=== PATIENT | male | born 1950 | race Caucasian/White ===

== ENCOUNTER → 2020-04-17 11:18 | Outpatient (CLI) | payer MEDICARE, SELFPAY ==
[2020-04-08 12:59] VITALS: BMI 28.3
--- NOTE | 2020-04-17 17:44 | STRESSREP_ITS ---
Stress Test Report Exercise myocardial perfusion stress test. 69-year-old man with a history of hypertension and hyperlipidemia and chest discomfort. Resting KG demonstrates normal sinus rhythm with a rate of 69 bpm normal intervals are noted resting blood pressure is 1 and 30/80 2 mmHg. The patient exercised according to regular Edward protocol for a total duration of 3 minutes and 31 seconds. The maximum heart rate attained was 122 bpm which was 80% of max impacted heart rate. Patient completed 31 seconds into stage II of the Edward protocol. The maximum heart rate attained was 122 bpm the maximum workload was 5.2 metabolic equivalents. At rest there were no ST or T wave changes noted suggest ischemia at peak exercise upsloping ST changes were noted with no meet the criteria for ischemia. The test was terminated due to fatigue. Myocardial perfusion protocol. 11.0 mCi of technetium 99m sestamibi was injected at rest. The patient exercis ed according to regular Edward protocol at peak exercise 34.3 mCi of technetium 99m sestamibi was injected stress images were obtained stress and rest images were reconstructed and compared in the short axis vertical and horizontal long axis. Gated images were also obtained Perfusion SPECT analysis: Review of the stress images demonstrate normal uptake of tracer noted in all areas of the myocardium the resting images similar demonstrate normal uptake of tracer noted in all areas of the myocardium. No reversibility is noted suggest ischemia no previous infarct is noted. Gated SPECT analysis: The gated ejection fraction is noted to be 69%. Conclusion: Normal exercise myocardial perfusion stress test at a low to moderate workload. Preserved ejection fraction.
== END ==
PROVIDERS: PCP Family Medicine; Referring Provider Internal Medicine Cardiovascular Disease; Visit Provider Internal Medicine Cardiovascular Disease
DX: R07.9 Chest pain, unspecified (principal)
CPT/HCPCS: 78452; 93017; A9500; A4216

== ENCOUNTER → 2020-04-22 12:52 | Outpatient (CLI) | payer MEDICARE, SELFPAY ==
[2020-04-08 12:59] VITALS: BMI 28.3
--- NOTE | 2020-04-22 12:53 | ECHOD_ITS ---
Reason For Study: CHEST PAIN Procedure This was a 2D Doppler, Color Flow transthoracic echocardiogram. Exam performed in department. Left Ventricle Normal LV size. Left ventricular systolic function is normal. The estimated ejection fraction is 60 %. Stage 1 diastolic dysfunction. No regional wall motion abnormalities noted. Right Ventricle Normal RV size. Normal systolic function. Atria Normal left atrium. Normal right atrium. Mitral Valve Normal mitral valve. Tricuspid Valve Normal tricuspid valve. Mild tricuspid valve insufficiency. Pulmonary artery systolic pressure is 30 mmHg. Aortic Valve Normal aortic valve. Trisinus/trileaflet aortic valve. Pulmonic Valve Normal pulmonic valve. Great Vessels Normal aortic root. The pulmonary artery is normal size. Normal inferior vena cava. Pericardium/Pleural No pericardial effusion. MMode/2D Measurements & Calculations LVIDd: 4.4 cm IVSd: 0.97 cm Ao root diam: 3.0 cm LVIDs: 2.6 cm LVPWd: 1.0 cm RVDd: 3.4 cm FS: 40.4 % LAV(MOD-bp): 60.8 ml LA A4 area: 17.1 cm2 LA dimension(2D): 3.6 cm LAV(MOD-bp) Indexed: 30.7 ml/m2 LAV(MOD-sp2): 54.0 ml LAV(MOD-sp4): 54.2 ml RA A4 area: 11.7 cm2 Time Measurements MV dec time: 0.21 sec Doppler Measurements & Calculations MV E max kodak: 79.0 cm/sec Lat Peak E' Kodak: 8.3 cm/sec Med Peak E' Kodak: 7.7 cm/sec MV A max [place]ak: 91.6 cm/sec E/E' lat: 9.6 E/E' med: 10.2 MV E/A: 0.86 Ao V2 max: 155.4 cm/sec LV V1 max: 125.0 cm/sec PA V2 max: 131.4 cm/sec Ao max P.7 mmHg LV V1 max P.3 mmHg TR max kodak: 254.6 cm/sec TR max P.9 mmHg Interpretation Summary Normal LV size. Left ventricular systolic function is normal. The estimated ejection fraction is 60 %. Stage 1 diastolic dysfunction. Pulmonary artery systolic pressure is 30 mmHg. Ordering Physician: Joni^Mj^^^ Referring Physician: Niraj Pastrana Performed By: Sharon Manley, FERCHO, RVT
== END ==
PROVIDERS: PCP Family Medicine; Referring Provider Internal Medicine Cardiovascular Disease; Visit Provider Internal Medicine Cardiovascular Disease
DX: I10 Essential (primary) hypertension (principal); R07.9 Chest pain, unspecified
CPT/HCPCS: 93306

== ENCOUNTER 2020-04-27 06:53 | Day surgery (SDC) | payer MEDICARE, SELFPAY ==
[2020-04-08 12:59] VITALS: BMI 28.3
[2020-04-24 09:43] VITALS: BMI 28.3
--- NOTE | 2020-04-24 12:27 | RAD_ITS ---
STUDY: X-RAY CHEST REASON FOR EXAM: Male, 69 years old. Pre heart cath 04-27-20, low heart rate, abnormal stress test, abnormal EKG, chest pain TECHNIQUE: PA and lateral views of the chest. COMPARISON: None. FINDINGS: The lungs are clear and expanded. There is no demonstrated pleural abnormality. Normal size heart. Normal mediastinum and ruthy. Normal visualized pulmonary arteries. There is atherosclerotic tortuosity of the aortic arch and descending thoracic aorta. There are mild degenerative changes of the visualized thoracic spine. Normal visualized ribs, clavicles, and shoulders. There is no demonstrated abnormality of the visualized soft tissue structures of the upper abdomen. RAD/Chest PA and Lateral IMPRESSION: No acute abnormality is seen. Electronically Signed: Juvencio Carr MD at 12:54 EST , Service support ,
[2020-04-24 12:44] LABS: Absolute Neutrophil Count 4.5 X10^3/uL (2.0-7.7); Basophil# 0.01 X10^3/uL; Basophil% 0.1 % (0-1); Eosinophil# 0.26 X10^3/uL; Eosinophils% 3.8 % (0-5); Hematocrit 40.7 % (40-54); Hemoglobin 12.7 g/dL (13.0-16.5); Lymphocyte % 21.9 % (19-41); Mean Corp Hgb Conc 31.2 g/dL (32-36); Mean Corpuscular Hgb 27.2 pg (27.0-32.0); Mean Corpuscular Volume 87.2 fL (80-94); Mean Platelet Vol. 8.8 fl (6.2-12.0); Monocyte# 0.54 X10^3/uL; Monocyte% 7.9 % (0-10); NRBC Flagged by Analyzer 0 % (0-5); Neutrophil # 4.52 X10^3/uL (2.7-7.7); Platelet Count 408 K/mm3 (150-450); RBC Distribution Width CV 12.6 % (11.6-14.6); RBC Distribution Width SD 39.8 fl (35.1-43.9); Red Blood Count 4.67 M/mm3 (4.6-6.2); White Blood Count 6.9 K/mm3 (4.4-11.0)
[2020-04-24 13:17] LABS: Anion Gap 6 (5-15); BUN 20 mg/dL (7-18); BUN/Creat Ratio 25.8 RATIO (10-20); Calcium,Total 8.9 mg/dL (8.5-10.1); Chloride 104 mmol/L (98-107); Creatinine, Serum 0.78 mg/dL (0.70-1.30); EST Glomerular Filtration Rate 106 mL/min (>60); Est Glom Filt Rate - Afr Amer 128 mL/min (>60); Glucose 108 mg/dL (74-106); Potassium 3.9 mmol/L (3.5-5.1); Sodium Level 137 mmol/L (136-145)
--- NOTE | 2020-04-27 06:00 | HP_ITS ---
HPI HPI History of Present Illness Details: Pleasant 69-year-old man with no previous cardiac history other than hypertension hyperlipidemia who presents with chest discomfort. He says that this discomfort is dull it comes on and sometimes lasts a few minutes and then goes away. He is not really sure what brings it on. He however thinks that activity worsens the discomfort. He has had no dizziness or diaphoresis no near syncope or syncope. He has been compliant with his medications. He has noted that his blood pressure has been slightly elevated. He has not had any recent testing. He did receive the quality assurance group leader for an elevated CYNTHIA titer and sed rate. He was on lipid-lowering therapy but is not taking anything at this time and is not taking anything for hypertension as well. Intake Vital Signs 04/08/20 Height 5 ft 8 in 04/08/20 Weight: 186 lb 04/08/20 BMI 28.3 04/08/20 BP 161/77 H 04/08/20 Respiration 16 04/08/20 Pulse 76 04/08/20 Pulse Oximetry (%) 97 Intake Visit Reasons: PCP ref'd for CP, abn EKG Allergies No Known Allergies Allergy (Verified 04/08/20 09:44) Medications baclofen 10 mg tablet 10 mg PO QHS 04/07/20 [History Confirmed 04/08/20] levocetirizine 5 mg tablet 5 mg PO QPM 04/07/20 [History Confirmed 04/08/20] meloxicam 15 mg tablet 15 mg PO DAILY 04/07/20 [History Confirmed 04/08/20] montelukast 10 mg tablet 10 mg PO DAILY 04/07/20 [History Confirmed 04/08/20] hydroxyzine HCl 25 mg tablet 25 mg PO QHS 04/08/20 [History Confirmed 04/08/20] lisinopril 20 mg tablet 20 mg PO DAILY #90 tab 04/08/20 [Rx Confirmed 04/08/20] [facility], [facility] Medical History Essential hypertension (Chronic) Hyperlipidemia (Chronic) Arthralgia (Chronic) Elevated antinuclear antibody (CYNTHIA) level (Chronic) GERD (gastroesophageal reflux disease) (Chronic) History of arthritis (Chronic) Surgical History History of cholecystectomy (Resolved 2014) History of colonoscopy (Resolved 2016) History of tonsillectomy (Resolved) Family History Mother Heart disease Diabetes Father Myocardial infarction Social History (Updated 04/08/20 @ 13:[address] Mj Quinones MD) Smoking Status: Never smoker alcohol intake: current alcohol intake frequency: holidays/special occasions only substance use type: does not use ROS Const Const: Negative for fatigue, weakness, headache(s), frequent falls, difficulty sleeping or excessive sweating Eyes Eyes: Negative for loss of peripheral vision, transient loss of vision, blurry vision, double vision or tunnel vision ENT ENT: Negative for headache(s), dizziness, Nosebleed/epistaxis or balance problems Cardio Chest Pain: Yes (new onset x 1 month) Character: tightness Onset: exercise Location: left chest Palpitations: No Edema: None Muscle aches with walking: None Resp Respiratory: Negative for SOB with activity, SOB at rest, SOB orthopnea\SOB lying down, Cough or paroxysmal nocturnal dyspnea GI GI: Negative nausea, vomiting, heartburn or black,tarry stools : Negative for hematuria Musc Musc: Negative for muscle aches/ myalgia, muscle weakness, joint pain or balance problems Skin Skin: Negative non-healing lesions, rash or unusual bruising Neuro Neuro: Negative for dizziness, lightheadedness, near syncope, syncope, orthostatic symptoms, frequent falls, headache(s), weakness, blurry vision, double vision or lack of coordination Baljit Hematologic/Lymphatic: Negative for easy bleeding or easy bruising Endo Endo: Negative for fatigue, excessive sweating or increased thirst/drinking Psych Psych: Negative for anxiety or depression Allergy Allergy/Immunology: Negative for hives, Negative for rash Cardiology Exam Const Appearance: cooperative, healthy appearing, no acute distress, well developed and well groomed Nutritional Appearance: average body habitus and well nourished Orientation: alert, awake and oriented x3 Head Head: normal to inspection, normocephalic and atraumatic Ears: hearing grossly normal bilaterally and external ears normal Nose: external nose normal, nares normal, nasal mucous membranes and turbinates normal, septum normal, no nasal discharge Face and Sinus: face symmetric Mouth: oral mucosae normal, tongue normal, oropharynx normal and moist mucous membranes Teeth and gingiva: dentition normal Throat: posterior oropharynx normal, tonsils normal and uvula midline Eyes General: appearance normal, both eyes and all related structures Eyelids: eyelids normal Conjunctivae: conjunctivae normal Pupils: PERRL, normal by confrontation and accommodation normal EOM: EOM intact bilaterally Neck Neck: normal visual inspection, trachea midline and no JVD JVD: +5 Carotids: normal carotid upstroke and bounding pulses Chest Chest inspection: normal inspection of the chest, symmetric chest movement and normal respiratory effort Auscultation: Bilateral: Clear to Auscultation Cardio Palpation: normal PMI Rate: regular rate Rhythm: regular rhythm Heart sounds: S1 normal, S2 normal and normal, physiologic split S2; negative rub, gallop or murmur GI GI: normal to inspection, soft, no hepatosplenomegaly and bowel sounds present Neuro General: alert, awake, oriented x3, gait normal, moves all extremities and no focal sensory deficit Skin Skin: no rashes or lesions noted Extremities Pulses: Normal: Right Femoral Pulse, Left Femoral Pulse, Right Dorsalis Pedis Pulse, Left Dorsalis Pedis Pulse, Right Posterior Tibial Pulse, Left Posterior Tibial Pulse, Right Radial Pulse, Left Radial Pulse Lower Extremity Edema: None: Bilateral Musculoskel Musculoskeletal: No joint tenderness Psych Psychological: normal affect Assessment & Plan 1. Chest pain R07.9 Plan He does have chest discomfort which appears to be worse with exercise. His EKG demonstrates normal sinus rhythm with a rate of 66 bpm and occasional premature atrial complex. I would recommend at this time that we perform an echocardiogram as well as an exercise stress test and depending on those findings further recommendations will be made. Orders Orders: Echo Complete Today Nuclear Stress Test - Treadmil Today 2. Essential hypertension I10 Plan His blood pressure is uncontrolled I would recommend that it be better controlled and I would like to start him on an BLAYNE inhibitor. An echocardiogram should also be performed to assess his ventricular function. With regard to his lipids we will continue with the current medical therapy. Orders Orders: Echo Complete Today Plan Detail Other Medications New: lisinopril 20 mg PO DAILY 90 tabs 3RF Follow Up 6 Months ([facility]) Coding Level of Care Code Off vis,new,level 4 Diagnoses Chest pain R07.9 Essential hypertension I10 Coding Level of Care Code Off vis,new,level 4 Diagnoses Chest pain R07.9 Essential hypertension I10
--- NOTE | 2020-04-27 08:48 | CL.D_ITS ---
Patient Name: MARYANN CONNOR Study Date: 04/27/2020 Performing: Mj Quinones MD Ht: 68.11 inches 173 cm : 1950 Wt: 185.19 lbs 84 kg Age: 69 Gender: male BSA: 1.98 PROCEDURE(S) PERFORMED NS10-USN/COR/LV CLINICAL PROFILE AND INDICATIONS Indications: Suspected CAD Heart Failure: None Stress/Imaging Date: 04/17/20ress Test with SPECT MPI: Indeterminant CAD Presentations: Unstable angina. 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 Preserved left ventricular systolic func tion. RECOMMENDATIONS Surgery consult for coronary revascularization DESCRIPTION OF PROCEDURE The patient arrived to the procedure lab. The risks and benefits of the procedure as well as a full d escription of our services here and current unavailability of surgical backup were fully explained to the patient and/or their significant other prior to the catheterization. The Timeout was completed, verifying the correct patient and procedure. The patient's procedural site was prepped and draped in the usual fashion. Local anesthetic was given subcutaneously to right radial region with Lidocaine 2% . Using a modified Seldinger technique, arterial access was obtained via the right radial artery, a 6 Fr sheath was inserted. Left Coronary Artery selective angiography was performed in multiple views u sing a 5 Fr. 4.0 [place] catheter. Right Coronary Artery selective angiography was then performed in mu ltiple views using a 5 Fr. 4.0 [place] catheter. Left Ventriculography was performed in FARIA projection using a 5 Fr. Pigtail catheter.The arterial sheath was pulled and a TR Band was applied for hemostasis CORONARY ANGIOGRAPHY DOMINANCE: Right Dominant LEFT HEART ASSESSMENT Left Ventricular Ejection Fraction: by LV Gram 60 % Normal LV wall motion Normal Left Ventricular systolic function LEFT MAIN: Angiographically normal LEFT ANTERIOR DESCENDING ARTERY: PROX LAD: Mild calcification, Long 70 % Stenosis DIAGONAL 1: Ostial - 80 % Stenosis CIRCUMFLEX ARTERY: PROX CIRC: 80 bifurcating % Stenosis RIGHT CORONARY ARTERY: MID RCA: 80 % Stenosis RT PLV: 80 % Stenosis RT PDA: Ostial - 90 % Stenosis COMPLICATIONS No Complications PROCEDURE MEDICATIONS Fentanyl 50 mcg IV Versed 1 mg IV Versed 1 mg IV Oxygen: 2 L/min via nasal cannula SUMMARY OF HEMODYNAMIC DATA Time AIR REST ECG 07:13:51 AO 113/64 (86) SA 08:28:02 LV 114/-4, 9 08:35:18 LV 110/0, 6 08:35:33 LV 141/5, 16 08:36:02 LV 125/5, 14 08:36:08 LVp 119/1, 13 08:36:14 AOp 130/65 (91) 08:36:19 08:47:38 Signed By Mj Quinones MD On 04/27/2020 08:48:16 Mj Quinones MD
== END 2020-04-27 10:40 | disposition home or self-care (01) ==
LOC: CLSP 06:53
PROVIDERS: PCP Family Medicine; Referring Provider Internal Medicine Cardiovascular Disease; Visit Provider Internal Medicine Cardiovascular Disease
DX: R07.9 Chest pain, unspecified (principal); I10 Essential (primary) hypertension; I25.110 Atherosclerotic heart disease of native coronary artery with unstable angina pectoris; I49.1 Atrial premature depolarization; E78.5 Hyperlipidemia, unspecified; K21.9 Gastro-esophageal reflux disease without esophagitis; M25.50 Pain in unspecified joint; Z79.82 Long term (current) use of aspirin; Z79.1 Long term (current) use of non-steroidal anti-inflammatories (NSAID); Z79.899 Other long term (current) drug therapy
CPT/HCPCS: 36415; 71046; 80048; 85025; 93458; 99152; 99153; J7040; Q9967; C1769; C1894

== ENCOUNTER → 2020-06-16 09:58 | Outpatient (CLI) | payer MEDICARE, SELFPAY ==
[2020-06-08 11:26] VITALS: BMI 28.7
--- NOTE | 2020-06-16 10:04 | PCM.CR.ITP ---
Diagnosis - General Information Admitting Diagnosis: S/P CABG @ [facility] Personal Learning Style:: Audio/Visual, Written Barriers to Learning: No Barriers Stage of change r/t lifestyle modifications:: Action Gave educational material for:: Treating Heart Disease, Emotions & Heart Disease, Stress Management & Relaxation, Sleep Disorders & Heart Disease, How The Heart Works, What it means to have Heart Disease, How Coronary Artery Disease is Diagnosed, Heart Procedures, What Heart Medications Do, Risk Factors & Modifications, Living an Active Life, Nutrition - Education/Goals Individual Counseling: Initial Assessment: Abnormal Cholesterol Levels, High Blood Pressure, Overweight/Obesity - Overweight BMI is 28 Cardiac Rehabilitation Goals: 1. Maintain the individual as the primary focus of care. 2. To improve the patient's quality of life. 3. Identification of cardiac risk factors and provide cardiac risk factor management. 4. Enhance the psychosocial status of the patient. 5. Reconditioning enough to allow the patient to resume customary activities. 6. Control symptoms of cardiac disease Personal Goals: Initial Assessment: Improve energy level, Participate in home exercise program, Get back to work, or to resume activities faster, Improve knowledge of cardiac disease, Improve muscle strength and endurance, Improve diet and eating habits (eat healthier), Control risk factors (learn risk factor modification) - Weight, and exercise more Scale for measuring improvement of personal goals: Enter appropriate number in Comments. 2 = Unchanged. 3 = Slightly Better. 4 = Moderate Improvement. 5 = Met my Goal - Diagnosis & Disease Process Outcomes/Goals: Pt IDs own risk factors & lifestyle modifications by Session 10, Verbalizes symptoms of angina & response by session 3., Pt independently manages Plan/Interventions: Assist Pt to ID & engage in lifestyle modification to reduce CVD risk, Instruct on individual risk factors, Review symptoms of angina & emergency actions, Review secondary diagnosis & identify educational needs. - Safety Referral to Physical Therapy: No Referral to [facility] Case Management: No Fall Risk Assessed:: Yes Assistive Devices:: None Exercise - Initial Assessment - Visit Date of Eval: 06/16/20 Session #:: 0 - pre cardiac rehab evaluation Mets: Pre-: >5 METS for 30 minutes by discharge - Physician Prescribed Exercise Modalities: Treadmill, Airdyne, NuStep Frequency: 3x/week for 12 weeks [36 sessions] Intensity: 60-80% of age predicted maximum heart rate reserve Current METSs:: 3.0 Target Heart Rate:: 99-129 Resting Blood Pressure: 112/66 EKG Type: NSR - Outcomes & Goals Goals:: Verbalizes understanding of THR, RPE & goal METS by session 6, Documents in home exercise log/reports 30 min aerobic 5 day/wk by DC, Demonstrates accurate pulse taking by DC - Intervention & Plan Exercise Program Goals: Instruct on personal THR & RPE, Instruct on MET level & personal MET goal, Instruct on home exercise - Physical Activity Home Exercise Physical Activity - Home Exercise: Safe Exercise, Warm-up, Self-monitoring, Cool-Down, Home Exercise > 30 min Daily, Sitting Time <3 hours/daily - Outcomes & Goals Outcomes/Goals: Demonstrates correct Warm-up/exercise Cool-Down (S3) if = 2.5 METs, Verbalizes symptoms of exercise intolerance by Session 3 (S3), Demonstrate safe equipment use (S3) & follows exercise prescrition (6) - Intervention & Plan Plan/Intervention: Instruct warm-up & cool-down if exercising at > 2 METs, Instruct on symptoms of exercise intolerance & actions to take, Instruct & monitor on saf, Assess intial functional capacity & safety risk Nutrition - Initial Assessment - Program Goals Nutrition Program Goals: LDL <100 optimal. 100 - 129 Near optimal. 130 - 159 Borderline High. 160 - 189 High. Total Cholesterol <200 desirable. 200 - 239 Borderline High. >/= 240 High. HDL < 40 Low >/=60 High. Triglycerides <150 desirable. <199 optimal. VlDL 5 - 40. HgbA1C <7%. BMI <25 Patient has diagnosis of Hyperlipidemia (ICD E78)?: Yes - Visit Date of Assessment:: 06/16/20 Session #:: 0 - Pre-cardiac rehab evaluation - Cholesterol/Lipids Triglycerides (mg/dL): 0 - not available Determine presence & major risk factors that modify LDL goal: Hypertension or hypertensive medication, Family history of premature CHD in Male < 55 years: female <65 yearsFa, Age men > 45 years; women >/= 55 years Outcomes/Goals: Pt IDs own risk factors & lifestyle modifications by Session 10, Verbalizes symptoms of angina & response by session 3., Pt independently manages Intervention/Plan: Instruct on personal lipid levels & lipid goals/NCEP guidelines, Instruct on cholesterol - Diabetes (Other Core Measures) Diabetes Type: Not Applicable - Weight Mgt (Other Care) Not Applicable: Yes Height: 5 ft 8 in - Weight:: 189 lb BMI: 28.7 Diagnosis Overweight/Obesity BMI> 30% ICD-10 E66: No Diagnosis High BMI/Morbid Obesity BMI> 35% ICD-10 Z68: No Outcomes/Goals: Pt sets, maintains & shows weight loss goal & trend during rehab Intervention/Plan: Instruct on ideal BMI & set weight loss goal w/patient, Assist pt to ID & incorporate diet changes for weight loss by S9 - Healthy Eating Habits Will attend diet classes:: Yes Outcomes/Goals:: Consume diet rich in vegs,fruits,whole grain/high fiber,fish,lean meat, Limit sat/trans fats,cholesterol & added salts & sugars Intervention/Plan:: Assess current eating habits Medical - Initial Assessment - Visit Date of Eval: 06/16/20 Session #:: 0 - Pre-cardiac rehab evaluation - Medication Compliance Preventative Medication(s):: Aspirin, Statin/lipid, Beta reema H/O mental health issues: depression, anxiety, or addiction?: No Doesn?t believe in the benefits of treatment?: No Believes medications are unnecessary or harmful?: No Has a concern about medication side effects?: No Expresses concern over the cost of medications?: No Outcomes/Goals: Verbalizes medications,desired effect & common side effects @ DC, Pt self-reports following medication regimen, Keeps card in wallet w/medications listed by DC Interventions/plans: Instruct on medication effects & side effects, Review medication list w/patient every two weeks, Instruct importance of taking meds as ordered & assist problem solving - Tobacco Use Tobacco Use: Non-smoker - Hypertension Hypertension Diagnosis:: Hypertension ICD-10 I10 Resting Blood Pressure:: 112/66 [place] [employer] Hypertension Guidelines: [place] [employer] Hypertension Guidelines. Normal BP Less than 120/80. Elevated BP 120/80. Hypertension Stage 1: BP 130-139/80-89. Hypertesnion Stage 2: BP 140 or higher/90 or higher. Hypertension Crisis: BP higher than 180/120 Outcomes/Goals: Able to verbalize/achieve optimal blood pressure <130/80, Incorporates diet changes & exercise for blood pressure control by DC Interventions/plan: Instruct on optimal blood pressure, hypertension & medications, Instruct on effects of sodium, alcohol, stress, exercise &hypertension - Tobacco Cessation Referral Smoking Cessation Referral:: No Individual Education/Counseling:: No Education Schedule Given:: Yes Psychosocial - Initial Assess - VIsit Date of Eval: 06/16/20 Session #:: 0 - Pre-cardiac rehab evaluation Not Applicable: Yes History of previous Mental disease:: No - Target Goals Target Goals: Assess presence or absence of depression. Using a valid screening tool, maximizes coping skills. Positive support system - Psychosocial Test Tool Used:: Carole Tilley QOL Cardiac, PHQ-9 Questionnaire phq-9 Severity: Severity. 1-4 Minimal Depression. 5-9 Mild Depression. 10-14 Moderate Depression. 15-19 Moderately Sever Depression. 20-27 Severe Depression. Rule: - Referral to Behavioral Health PS - Interventions: Yes Attend Stress Management Classes, No Referral to Behavioral Health if PHQ-9 score >9:, No Referral to [facility], No Referral to Physician if PHQ-9 if score is 5-9: - Outcomes/Goals: See list Psychosocial Outcomes/Goals:: ID's personal stressors & 2 strategies to manage stress by discharge - Intervention/Plan: See List Interventions/Plan:: Assess stressors,coping strategies & signs of derpression on admission, Instruct/assist pt to develop coping & personal stress Mgt strategies, Instruct patient to recognize signs & symptoms of depression, Instruct patient to recog Patient Health Questionnaire Initial Assessment 1. Little interest or pleasure in doing things: Not at all 2. Feeling down, depressed, or hopeless: Several days 3. Trouble falling or staying asleep, or sleeping too much: Not at all 4. Feeling tired or having little energy: Several days 5. Poor appetite or overeating: More than half the days 6. Feeling bad about yourself -- or that you are a failure or have let yourself or your family down: Not at all 7. Trouble concentrating on things, such as reading the newspaper or watching television: Not at all 8. Moving or speaking so slowly that other people could have noticed. Or the opposite - being so fidgety or restless that you have been moving around a lot more than usual: Not at all 9. Thoughts that you would be better off , or of hurting yourself in some way: Not at all How difficult have these problems made it for you to do your work, take care of things at home, or get along with other people?: Not difficult at all Total Score: 4 GONZALO-Q SV Test - Statements CAD is a disease of the arteries in the heart: False Examples of risk factors for heart disease: True Angina is chest pain or discomfort: I Don't Know The benefits of resistance training include: True Eating more meat and dairy products: False Anti-platelet medications such as aspirin are important: True The only effective way to manage stress: False An exercise warm-up slowly increases heart rate: True Prepared, processed foods usually have high sodium: True Depression is common after a heart attack: I Don't Know The statin medications lower cholesterol: True To control blood pressure, lower the amount of sodium: I Don't Know If someone gets chest discomfort during walking: False Transfats are partially hydrogenated vegetable oils: I Don't Know Sleep apnea that is not treated increases the risk: I Don't Know To control cholesterol, one should become a vegetarian: I Don't Know Someone knows if he/she is exercising at the right level: I Don't Know Diabetes cannot be prevented with exercise & health eating: I Don't Know Stress is a large risk for heart attack: True A diet that can help lower blood pressure is rich in: True - Total Score Total Correct Responses: 12 Self-Efficacy Initial Assessment We would like to know how confident you are in doing certain activities. Please select your confidence level for:: Select your confidence level for the following using the scale 1-10 where 1 is not at all confident and 10 is totally confident. Your score is the average of all 6 responses. Fatigue: How confident are you that you can keep the fatigue caused by your disease from interfering with the things you want to do? Select Number: 5 Physical Discomfort or Pain: How confident are you that you can keep the physical discomfort or pain of your disease from interfering with the things you want to do? Select Number: 5 Emotional Distress: How confident are you that you can keep the emotional distress caused by your disease from interfering with the things you want to do? Select Number: 8 Other Symptoms or Health Problems: How confident are you that you can keep other symptoms or health problems from interfering with the things you want to do? Select Number: 7 Different Tasks and Activities: How confident are you that you can do the different tasks and activities needed to manage your health condition so as to reduce your need to see a doctor? Select Number: 5 Medication: How confident are you that you can do things other than just taking medication to reduce how much your illness affects your everyday life? Select Number: 7 Total Score:: 6 Nutrition Survey - Nutrition Survey Instructions Scoring Instructions: Scoring is as follows: Yes = 1 points. No = 0 point. Patient score that is >/=12 is considered to be at potential nutritional risk and could benefit from a referral to a registered dietitian. - Nutrition Survey Initial Have you lost >10 lbs over the past 2 months without trying?: No Are you following a special diet at home for diabetes, low fat, or low salt?: No Are you interested in meeting with a dietitian for help understanding your diet?: No Do you eat less than 3 meals a day?: No Do you eat fatty meats (mazariegos, sausage, ribs, etc), fried foods, desserts, large amounts of salad dressings, margarine, butter, or cheese most days?: No Do you have food allergies? [Enter types in comment field]: No Do you eat in restaurants more than 3 times a week?: No Do you season food with salt, seasoning salt, or garlic salt?: No Do you used canned, boxed, frozen meals, or soups, seasoning packets?: No Total Score:: 0
--- NOTE | 2020-06-16 10:05 | PCM.CR.HP2 ---
CR - History & Physical - General Arrival date:: 06/16/20 Arrival time:: 10:00 Date of Referral:: 06/08/20 Date of CR Evaluation:: 06/16/20 Referring Physician: Dr. Mj Quinones Primary Diagnosis: CABG - History of Present Cardiac Event Onset Date: Enter Onset Date of cardiac illnesses in Comment field below Coronary Artery Bypass Graft:: Yes - 05/07/2020 @ [place] Type of Symptoms:: chest pains Interventions with present event:: Came to [facility] and was then sent to [place], found needed more than stents - Medications Home Medications: Ambulatory Orders Medication Instructions Recorded baclofen 10 mg tablet 10 mg PO QHS 04/07/20 levocetirizine 5 mg tablet 5 mg PO QPM 04/07/20 meloxicam 15 mg tablet 15 mg PO DAILY 04/07/20 aspirin 81 mg tablet,delayed 81 mg PO DAILY 04/20/20 release pravastatin 80 mg tablet 80 mg PO QHS 05/16/20 furosemide 40 mg tablet 40 mg PO DAILY #30 tablet 06/08/20 hydroxyzine HCl 25 mg tablet 25 mg PO QHS 06/08/20 metoprolol tartrate 25 mg tablet 12.5 mg PO BID #30 tablet 06/08/20 - Allergies Allergies/Adverse Reactions: Allergies No Known Allergies Allergy (Verified 04/24/20 09:47) - Sleep Disorder Evaluation Hx of Sleep Apnea: No Do you snore loudly (louder than talking or can be heard through closed doors)?: No Do you often feel tired/ fatigued/ sleepy during daytime?: Yes - some but very minimal Has anyone observed you stop breathing during sleep?: No History of Hypertension (for STOP score): Yes STOP Results: Positive Advanced Directives - Advanced Directives Power of Grout Machine Tender: Yes Living Will: Yes Advance Directives Information Provided: No Advance Directives on File: No DNR Order?:: No - MOLST See MOLST form: No Past Medical History - Covid-19 Screening Fever: No Unexplained muscle aches: No Current respiratory symptoms: No Upper respiratory infections symptoms: No Gastro-intestinal symptoms: No Aqd-Ghaj-Tqcvdr symptoms: No Has tested positive for COVID-19 in last 30 days: No Had contact w/person w/symptoms or Covid-19 (+) last 14 days: No Has High Risk Exposures ID'd by Health dept/Inf Control team: No 65 years or older:: Yes Lives in Assisted Living facility:: No Has a chronic lung disease or moderate to severe asthma:: No Has a serious heart condition:: Yes Immunocompromised:: No Severely obese (Body Mass Index of 40 or higher):: No Diabetic:: No Has chronic kidney disease undergoing dialysis:: No Has liver disease:: No - Past Medical Illness Medical History: Past Medical History (Last Reviewed 06/08/20 @ 11:33 by Loretta Larson) Atherosclerotic heart disease of [place] coronary artery without angina pectoris (Chronic) I25.10 Essential hypertension (Chronic) I10 Hyperlipidemia (Chronic) E78.5 Arthralgia M25.50 Arthritis M19.90 Elevated antinuclear antibody (CYNTHIA) level R76.8 GERD (gastroesophageal reflux disease) K21.9 History of arthritis Z87.39 Atherosclerotic heart disease [place] coronary artery w/angina pectoris (Resolved) I25.119 - Past Surgical History Surgical History: Past Surgical History (Last Reviewed 06/08/20 @ 11:33 by Loretta Larson) H/O coronary artery bypass surgery (Resolved) Onset Date: 05/07/20 Z95.1 CABG x 5: COBOS-LAD, Sequential SVG-RPLVB and OM1, SVG-RPDA, SVG-D1 05/07/2020 History of cholecystectomy Onset Date: 2014 Z90.49 History of colonoscopy Onset Date: 2016 Z98.890 History of left heart catheterization Onset Date: 04/27/20 Z98.890 History of tonsillectomy Z90.89 - Family History Summary Family History: Family History (Last Reviewed 06/08/20 @ 11:33 by Loretta Larson) Mother Heart disease Diabetes Father Myocardial infarction Social History - Smoking History Smoking Status: Never smoker Hx Tobacco Use: No - Alcohol Use Alcohol Usage: Yes - holidays and special occasions only - Substance Abuse Hx Substance Use: No - Occupation Occupation (List type of work in comments):: Retired - Hobbies, Recreation, Social Activities Hobbies: Watch TV, Walking - like to go on walks, Other Recreational Activities: I am able to engage in most, but not all activities Social Environment - Status Marital Status: Single - Current Living Arrangements Living Environment:: Alone - Children Do any of your children live nearby?: No - Safety Do you feel safe in your surroundings?: Yes Review of Systems - Review of Systems Hints: Right click = Denies ([place]). Left click = Reports ([place]) Review of Present Symptoms: Reports: Shortness of Breath with Exertion - very little, Wound Healing, Appetite - Normal, Appetite - Special Diet - low sodium low fat diet. 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 to cardiac rehab today following CABG done at [facility] on 05/07/2020 - Vital Signs Temperature: 97.7 F Respiratory Rate: 14 Pulse Ox: 97 Nailbeds:: 112/66 - Pulse Pulse Rate: 68 Pulse Rhythm: Regular - Hypertension Blood Pressure Sitting - Left Arm: 112/66 - Blood Cholesterol/Lipids Total Cholesterol (mg/dL) Goal = less than 200 mg/dL: 0 - not lab available - Diabetes Nutrition Referral for Diabetes: No - Obesity Height: 5 ft 8 in Weight:: 189 lb Weight in Pounds: 189.0 lbs Weight Source: Standing Scale Body Mass Index (BMI): 28.7 Nutritional Referral for Obesity: No - Physical Inactivity Physical Inactivity: Recreational activity - Risk Stratification Risk Guidelines: Lowest Risk: Risk Factor for Smoking, Risk Factor for Dyslipidemia, Risk Factor for Diabetes, Risk Factor for Hypertension, Risk Factor for Depression, Moderate Risk: Risk Factor for Obesity - BMI 28, Risk Factor for Sedentary Lifestyle - regular exercise is minimal, but does take some walks now and then - For Smoking Smoking Risk Guidelines: Smoking Low Risk: None or quit greater than 6 months ago. Smoking Moderate Risk: Smoker or quit 6 months or less ago. Smoking High Risk: Smoker - For Dyslipidemia Dyslipidemia Risk Guidelines: Low Risk: Moderate Risk: High Risk: 15-25% fat 25.1-29% fat >/= 30% fat. <7% sat fat 7-9% sat fat >9% sat fat. <150 mg chol 150-299 mg chol >/= 300 mg chol. LDL <100 LDL 100-129 LDL >/= 130. Chol/HDL ratio <5.0 Chol/HDL ratio 5.0-6.0 Chol/HDL ratio >6.0. Triglycerides <100 Triglycerides 100-149 Triglycerides >/= 150 - For Diabetes Mellitus Diabetes Risk Guidelines: Diabetes Low Risk: HgA1c <6.5% and/or FBG <120. Diabetes Moderate Risk: HgA1c 6.6-7.9% and/or FBG 120-180. Diabetes High Risk: HgA1c >/= 8% and/or FBG >180 - For Obesity/Overweight Obesity/Overweight Risk Guidelines: Obesity Low Risk: BMI <25.0. Obesity Moderate Risk: BMI 25-29.9. Obesity High Risk: BMI >/= 30.0 - For Hypertension Hypertension Risk Guidelines: Hypertension Low Risk: Systolic <120 and Diastolic <80. Hypertension Moderate Risk: Systolic 120-139 and Diastolic 80-89. Hypertension High Risk: Systolic >/= 140 and Diastolic >/= 90 - For Sedentary Lifestyle Sedentary Lifestyle Risk Guidelines: Sedentary Lifestyle Low Risk: >/= 1,500 kcal/week. Sedentary Lifestyle Moderate Risk: 700-1,499 kcal/week. Sedentary Lifestyle High Risk: < 700 kcal/week - For Depression Depression Risk Guidelines: Depression Low Risk: Not clinically depressed. Depression Moderate Risk: Mildly depressed. Depression High Risk: Clinically depressed - Family History Family History: Family History (Last Reviewed 06/08/20 @ 11:33 by Loretta Larson) Mother Heart disease Diabetes Father Myocardial infarction Motivation - Motivation to Participate On a scale of 1 to 10, how prepared are you to commit to attending program?: 8 What do you see as barriers to successfully being able to complete the program?: some upper body weakness, shoulders What do you see as the benefits of succesfully completing the program? In other words, what do you hope to get out of participating in the program?: healthier, more exercise, lose weight Are there issues you are dealing with that will interfere with completing the program?: none Do you have a spouse or signficant other, family or friends who will help support you to complete the program?: yes
[2020-06-16 10:23] VITALS: BP 112/66; BMI 28.7
[2020-06-16 10:39] VITALS: BP 112/66; PULSE 68; RESP 14; TEMP 36.5; O2SAT 97; BMI 28.7
== END ==
PROVIDERS: PCP Family Medicine; Referring Provider Internal Medicine Cardiovascular Disease; Visit Provider Internal Medicine Cardiovascular Disease
DX: Z95.1 Presence of aortocoronary bypass graft (principal); I25.10 Atherosclerotic heart disease of native coronary artery without angina pectoris; I10 Essential (primary) hypertension; E78.5 Hyperlipidemia, unspecified; K21.9 Gastro-esophageal reflux disease without esophagitis

== ENCOUNTER → 2020-07-01 10:48 | Outpatient (CLI) | payer MEDICARE, SELFPAY ==
[2020-06-16 10:23] VITALS: BMI 28.7
[2020-06-16 10:39] VITALS: BMI 28.7
--- NOTE | 2020-07-01 10:52 | RAD_ITS ---
STUDY: X-RAY - RIGHT SHOULDER REASON FOR EXAM: Male, 69 years old. SHOULDER PAIN TECHNIQUE: 4 view(s) of the shoulder. COMPARISON: None. FINDINGS: Normal glenohumeral articulation. Normal acromioclavicular joint. Normal acromion. Normal humeral head and visualized proximal humerus. The soft tissue structures are unremarkable. Normal visualized pulmonary apex. RAD/Shoulder min 2 Views IMPRESSION: Normal x-ray examination of the shoulder. Electronically Signed: Romulo Bernard MD at 9:11 EDT Tel , Service support ,
--- NOTE | 2020-07-01 11:11 | RAD_ITS ---
STUDY: X-RAY - LEFT SHOULDER REASON FOR EXAM: Male, 69 years old. PAIN TECHNIQUE: 4 view(s) of the shoulder. COMPARISON: None. FINDINGS: There is mild degenerative arthrosis of the glenohumeral articulation. Normal acromioclavicular joint. Normal acromion. Normal humeral head and visualized proximal humerus. The soft tissue structures are unremarkable. Normal visualized pulmonary apex. RAD/Shoulder min 2 Views IMPRESSION: Mild glenohumeral joint arthrosis. Electronically Signed: Romulo Bernard MD at 9:10 EDT Tel , Service support ,
== END ==
PROVIDERS: PCP Family Medicine; Referring Provider Family Medicine; Visit Provider Family Medicine
DX: M25.511 Pain in right shoulder (principal); M25.512 Pain in left shoulder; G89.29 Other chronic pain
CPT/HCPCS: 73030

== ENCOUNTER 2020-07-17 10:15 | Outpatient (RCR) | payer MEDICARE, SELFPAY ==
[2020-06-16 10:23] VITALS: BMI 28.7
[2020-06-16 10:39] VITALS: BMI 28.7
--- NOTE | 2020-07-16 10:19 | PCM.CR.ITP ---
Diagnosis Exercise - 30-day Assessment - Visit Date of Eval: 07/16/20 Session #:: 11 - Physician Prescribed Exercise Modalities: Airdyne, NuStep, SciFit Frequency: 3x/week for 12 weeks [36 sessions] Intensity: 60-80% of age predicted maximum heart rate reserve Current METSs:: 4.0 increased from 3.0 Target Heart Rate:: 99-129 Current RPE:: 12-13 Maximum Excercise HR:: 109 Resting Blood Pressure: 138/70 Maximum Exercise Blood Pressure: 154/82 EKG Type: NSR to sinus tach w/ rare PACs - Outcomes & Goals Goals:: Verbalizes understanding of THR, RPE & goal METS by session 6, Documents in home exercise log/reports 30 min aerobic 5 day/wk by DC, Demonstrates accurate pulse taking by DC - Intervention & Plan Exercise Program Goals: Instruct on personal THR & RPE, Instruct on MET level & personal MET goal, Show patient to take own pulse /validate performance until accurate, Instruct on home exercise - 30-day Reassessments 30 day Reassessments:: Progressing - Physical Activity Home Exercise Physical Activity - Home Exercise: Safe Exercise, Warm-up, Self-monitoring, Cool-Down, Home Exercise > 30 min Daily, Sitting Time <3 hours/daily - Outcomes & Goals Outcomes/Goals: Demonstrates correct Warm-up/exercise Cool-Down (S3) if = 2.5 METs, Verbalizes symptoms of exercise intolerance by Session 3 (S3), Demonstrate safe equipment use (S3) & follows exercise prescrition (6) - Intervention & Plan Plan/Intervention: Instruct warm-up & cool-down if exercising at > 2 METs, Instruct on symptoms of exercise intolerance & actions to take, Instruct & monitor on saf, Assess intial functional capacity & safety risk - 30-day Reassessments 30 day Reassessments:: Progressing Nutrition - Initial Assessment Nutrition - 30-Day Assessment - Program Goals Nutrition Program Goals: LDL <100 optimal. 100 - 129 Near optimal. 130 - 159 Borderline High. 160 - 189 High. Total Cholesterol <200 desirable. 200 - 239 Borderline High. >/= 240 High. HDL < 40 Low >/=60 High. Triglycerides <150 desirable. <199 optimal. VlDL 5 - 40. HgbA1C <7%. BMI <25 Patient has diagnosis of Hyperlipidemia (ICD E78)?: Yes - Visit Date of Assessment:: 07/16/20 Session #:: 11 - Cholesterol/Lipids Triglycerides (mg/dL): 0 - no profile available Determine presence & major risk factors that modify LDL goal: Hypertension or hypertensive medication, Age men > 45 years; women >/= 55 years Outcomes/Goals: Pt IDs own risk factors & lifestyle modifications by Session 10, Verbalizes symptoms of angina & response by session 3., Pt independently manages Intervention/Plan: Instruct on personal lipid levels & lipid goals/NCEP guidelines, Instruct on cholesterol Referral to dietitian:: Yes - Medical Nutrition Therapy 30-day Reassessments:: Progressing - Diabetes (Other Core Measures) Diabetes Type: Not Applicable - Weight Mgt (Other Care) Height: 5 ft 8 in Weight:: 198 lb - starting weight at 189# BMI: 30.1 Diagnosis Overweight/Obesity BMI> 30% ICD-10 E66: Yes Diagnosis High BMI/Morbid Obesity BMI> 35% ICD-10 Z68: No Outcomes/Goals: Pt sets, maintains & shows weight loss goal & trend during rehab Intervention/Plan: Instruct on ideal BMI & set weight loss goal w/patient, Assist pt to ID & incorporate diet changes for weight loss by S9, Refer to Structured Weight Loss program as appropriate, Encourage goal of using 250-300dcal per session for weight loss 30 day Reassessments:: Progressing - Healthy Eating Habits Will attend diet classes:: Yes Outcomes/Goals:: Consume diet rich in vegs,fruits,whole grain/high fiber,fish,lean meat, Limit sat/trans fats,cholesterol & added salts & sugars Intervention/Plan:: Assess current eating habits 30-day Reassessments:: Not Met - Patient has actually gained weight and increased BMI Nutrition - 60-Day Assessment Nutrition - 90-Day Assessment Nutrition - Final Assessment Medical - Initial Assessment Medical- 30-Day Assessment - Visit Date of Eval: 07/16/20 Session #:: 11 - Medication Compliance Preventative Medication(s):: Aspirin, Statin/lipid, Beta reema H/O mental health issues: depression, anxiety, or addiction?: No Doesn?t believe in the benefits of treatment?: No Believes medications are unnecessary or harmful?: No Has a concern about medication side effects?: No Expresses concern over the cost of medications?: No Outcomes/Goals: Verbalizes medications,desired effect & common side effects @ DC, Pt self-reports following medication regimen, Keeps card in wallet w/medications listed by DC Interventions/plans: Instruct on medication effects & side effects, Review medication list w/patient every two weeks, Instruct importance of taking meds as ordered & assist problem solving 30-day Reassessments:: Progressing - Tobacco Use Tobacco Use: Non-smoker - Hypertension Hypertension Diagnosis:: Hypertension ICD-10 I10 Resting Blood Pressure:: 138/70 - Pt continues to have Stage I HTN w/medications [place] [employer] Hypertension Guidelines: [place] [employer] Hypertension Guidelines. Normal BP Less than 120/80. Elevated BP 120/80. Hypertension Stage 1: BP 130-139/80-89. Hypertesnion Stage 2: BP 140 or higher/90 or higher. Hypertension Crisis: BP higher than 180/120 Peak Exercise Blood Pressure:: 154/82 Outcomes/Goals: Able to verbalize/achieve optimal blood pressure <130/80, Incorporates diet changes & exercise for blood pressure control by DC Interventions/plan: Instruct on optimal blood pressure, hypertension & medications, Instruct on effects of sodium, alcohol, stress, exercise &hypertension 30 day Reassessments:: Progressing - Tobacco Cessation Referral Smoking Cessation Referral:: No Individual Education/Counseling:: No Education Schedule Given:: Yes Medical- 60-Day Assessment Medical- 90-Day Assessment Medical - Final Assessment Psychosocial - Initial Assess Psychosocial - 30-Day Assess - VIsit Date of Eval: 07/16/20 Session #:: 11 Not Applicable: Yes - Psychosocial Test Tool Used:: PHQ-9 Questionnaire phq-9 Severity: Severity. 1-4 Minimal Depression. 5-9 Mild Depression. 10-14 Moderate Depression. 15-19 Moderately Sever Depression. 20-27 Severe Depression. Rule: - Referral to Behavioral Health PS - Interventions: Yes Attend Stress Management Classes, No Referral to Behavioral Health if PHQ-9 score >9:, No Referral to [facility], No Referral to Physician if PHQ-9 if score is 5-9: - Outcomes/Goals: See list Psychosocial Outcomes/Goals:: ID's personal stressors & 2 strategies to manage stress by discharge - Intervention/Plan: See List Interventions/Plan:: Assess stressors,coping strategies & signs of derpression on admission, Instruct/assist pt to develop coping & personal stress Mgt strategies, Instruct patient to recognize signs & symptoms of depression, Instruct patient to recog Psychosocial - 60-Day Assess Psychosocial - 90-Day Assess Psychosocial - Final Assessmen Patient Health Questionnaire 30-Day Re-eval Assessment 1. Little interest or pleasure in doing things: Not at all 2. Feeling down, depressed, or hopeless: Several days 3. Trouble falling or staying asleep, or sleeping too much: Not at all 4. Feeling tired or having little energy: Several days 5. Poor appetite or overeating: More than half the days 6. Feeling bad about yourself -- or that you are a failure or have let yourself or your family down: Not at all 7. Trouble concentrating on things, such as reading the newspaper or watching television: Not at all 8. Moving or speaking so slowly that other people could have noticed. Or the opposite - being so fidgety or restless that you have been moving around a lot more than usual: Not at all 9. Thoughts that you would be better off , or of hurting yourself in some way: Not at all How difficult have these problems made it for you to do your work, take care of things at home, or get along with other people?: Not difficult at all Total Score: 4 Self-Efficacy Nutrition Survey
[2020-07-16 10:32] VITALS: BP 138/70; BP 154/82; BMI 30.1
== END 2020-07-17 23:59 ==
LOC: CR 10:15
PROVIDERS: PCP Family Medicine; Referring Provider Internal Medicine Cardiovascular Disease; Visit Provider Internal Medicine Cardiovascular Disease
DX: I25.10 Atherosclerotic heart disease of native coronary artery without angina pectoris (principal); Z95.1 Presence of aortocoronary bypass graft
CPT/HCPCS: 93798

== ENCOUNTER 2020-08-14 10:15 | Outpatient (RCR) | payer MEDICARE, SELFPAY ==
[2020-06-16 10:39] VITALS: BMI 28.7
[2020-07-16 10:32] VITALS: BMI 30.1
[2020-07-18 00:15] VITALS: BP 138/70; BP 154/82
--- NOTE | 2020-08-14 06:57 | PCM.CR.ITP ---
Diagnosis Exercise - 60-day Assessment - Visit Date of Eval: 08/14/20 Session #:: 23 - Physician Prescribed Exercise Modalities: Airdyne, NuStep, SciFit Frequency: 3x/week for 12 weeks [36 sessions] Intensity: 60-80% of age predicted maximum heart rate reserve Current METSs:: 4.0 Target Heart Rate:: 99-129 Current RPE:: 12-13 Maximum Excercise HR:: 116 Resting Blood Pressure: 118/60 Maximum Exercise Blood Pressure: 180/80 EKG Type: NSR to sinus tach without ectopy. - Outcomes & Goals Goals:: Verbalizes understanding of THR, RPE & goal METS by session 6, Documents in home exercise log/reports 30 min aerobic 5 day/wk by DC, Demonstrates accurate pulse taking by DC - Intervention & Plan Exercise Program Goals: Instruct on personal THR & RPE, Instruct on MET level & personal MET goal, Show patient to take own pulse /validate performance until accurate, Instruct on home exercise - 30-day Reassessments 30 day Reassessments:: Progressing - Physical Activity Home Exercise Physical Activity - Home Exercise: Safe Exercise, Warm-up, Self-monitoring, Cool-Down, Home Exercise > 30 min Daily, Sitting Time <3 hours/daily - Outcomes & Goals Outcomes/Goals: Demonstrates correct Warm-up/exercise Cool-Down (S3) if = 2.5 METs, Verbalizes symptoms of exercise intolerance by Session 3 (S3), Demonstrate safe equipment use (S3) & follows exercise prescrition (6) - Intervention & Plan Plan/Intervention: Instruct warm-up & cool-down if exercising at > 2 METs, Instruct on symptoms of exercise intolerance & actions to take, Instruct & monitor on saf, Assess intial functional capacity & safety risk - 30-day Reassessments 30 day Reassessments:: Met Nutrition - Initial Assessment Nutrition - 30-Day Assessment Nutrition - 60-Day Assessment - Program Goals Nutrition Program Goals: LDL <100 optimal. 100 - 129 Near optimal. 130 - 159 Borderline High. 160 - 189 High. Total Cholesterol <200 desirable. 200 - 239 Borderline High. >/= 240 High. HDL < 40 Low >/=60 High. Triglycerides <150 desirable. <199 optimal. VlDL 5 - 40. HgbA1C <7%. BMI <25 Patient has diagnosis of Hyperlipidemia (ICD E78)?: Yes - Visit Date of Assessment:: 08/14/20 Session #:: 23 - no recent labs since admission - Cholesterol/Lipids Determine presence & major risk factors that modify LDL goal: Hypertension or hypertensive medication, Family history of premature CHD in Male < 55 years: female <65 yearsFa, Age men > 45 years; women >/= 55 years Outcomes/Goals: Pt IDs own risk factors & lifestyle modifications by Session 10, Verbalizes symptoms of angina & response by session 3., Pt independently manages Intervention/Plan: Instruct on personal lipid levels & lipid goals/NCEP guidelines, Instruct on cholesterol Referral to dietitian:: Yes - Medical Nutrition Therapy 30-day Reassessments:: Progressing - Diabetes (Other Core Measures) Diabetes Type: Not Applicable - Weight Mgt (Other Care) Not Applicable: Yes Height: 5 ft 8 in Weight:: 201 lb 8 oz BMI: 30.6 Diagnosis Overweight/Obesity BMI> 30% ICD-10 E66: Yes Diagnosis High BMI/Morbid Obesity BMI> 35% ICD-10 Z68: No Outcomes/Goals: Pt sets, maintains & shows weight loss goal & trend during rehab Intervention/Plan: Instruct on ideal BMI & set weight loss goal w/patient, Assist pt to ID & incorporate diet changes for weight loss by S9, Refer to Structured Weight Loss program as appropriate, Encourage goal of using 250-300dcal per session for weight loss 30 day Reassessments:: Progressing - Healthy Eating Habits Will attend diet classes:: Yes Outcomes/Goals:: Consume diet rich in vegs,fruits,whole grain/high fiber,fish,lean meat, Limit sat/trans fats,cholesterol & added salts & sugars Intervention/Plan:: Assess current eating habits 30-day Reassessments:: Progressing Nutrition - 90-Day Assessment Nutrition - Final Assessment Medical - Initial Assessment Medical- 30-Day Assessment Medical- 60-Day Assessment - Visit Date of Eval: 08/14/20 Session #:: 23 - Medication Compliance Preventative Medication(s):: Aspirin, Statin/lipid, Beta reema H/O mental health issues: depression, anxiety, or addiction?: No Doesn?t believe in the benefits of treatment?: No Believes medications are unnecessary or harmful?: No Has a concern about medication side effects?: No Expresses concern over the cost of medications?: No Outcomes/Goals: Verbalizes medications,desired effect & common side effects @ DC, Pt self-reports following medication regimen, Keeps card in wallet w/medications listed by DC Interventions/plans: Instruct on medication effects & side effects, Review medication list w/patient every two weeks, Instruct importance of taking meds as ordered & assist problem solving 30-day Reassessments:: Progressing - Tobacco Use Tobacco Use: Non-smoker - Hypertension Resting Blood Pressure:: 118/60 [place] [employer] Hypertension Guidelines: [place] [employer] Hypertension Guidelines. Normal BP Less than 120/80. Elevated BP 120/80. Hypertension Stage 1: BP 130-139/80-89. Hypertesnion Stage 2: BP 140 or higher/90 or higher. Hypertension Crisis: BP higher than 180/120 Peak Exercise Blood Pressure:: 180/80 Outcomes/Goals: Able to verbalize/achieve optimal blood pressure <130/80, Incorporates diet changes & exercise for blood pressure control by DC Interventions/plan: Instruct on optimal blood pressure, hypertension & medications, Instruct on effects of sodium, alcohol, stress, exercise &hypertension 30 day Reassessments:: Progressing - Tobacco Cessation Referral Smoking Cessation Referral:: No Individual Education/Counseling:: No Education Schedule Given:: Yes Medical- 90-Day Assessment Medical - Final Assessment Psychosocial - Initial Assess Psychosocial - 30-Day Assess Psychosocial - 60-Day Assess - VIsit Date of Eval: 08/14/20 Session #:: 23 Not Applicable: Yes History of previous Mental disease:: No - Psychosocial Test Tool Used:: PHQ-9 Questionnaire phq-9 Severity: Severity. 1-4 Minimal Depression. 5-9 Mild Depression. 10-14 Moderate Depression. 15-19 Moderately Sever Depression. 20-27 Severe Depression. Rule: - Referral to Behavioral Health PS - Interventions: Yes Attend Stress Management Classes, No Referral to Behavioral Health if PHQ-9 score >9:, No Referral to [facility], No Referral to Physician if PHQ-9 if score is 5-9: - Outcomes/Goals: See list Psychosocial Outcomes/Goals:: ID's personal stressors & 2 strategies to manage stress by discharge - Intervention/Plan: See List Interventions/Plan:: Instruct/assist pt to develop coping & personal stress Mgt strategies, Instruct patient to recognize signs & symptoms of depression, Instruct patient to recog - 30-day Reassessments: 30 day Reassessments:: Progressing Psychosocial - 90-Day Assess Psychosocial - Final Assessmen Patient Health Questionnaire 60-Day Re-eval Assessment 1. Little interest or pleasure in doing things: Not at all 2. Feeling down, depressed, or hopeless: Not at all 3. Trouble falling or staying asleep, or sleeping too much: Several days 4. Feeling tired or having little energy: Not at all 5. Poor appetite or overeating: Several days 6. Feeling bad about yourself -- or that you are a failure or have let yourself or your family down: Not at all 7. Trouble concentrating on things, such as reading the newspaper or watching television: Not at all 8. Moving or speaking so slowly that other people could have noticed. Or the opposite - being so fidgety or restless that you have been moving around a lot more than usual: Not at all 9. Thoughts that you would be better off , or of hurting yourself in some way: Not at all How difficult have these problems made it for you to do your work, take care of things at home, or get along with other people?: Not difficult at all Total Score: 2 Self-Efficacy 60-Day Re-eval Assessment We would like to know how confident you are in doing certain activities. Please select your confidence level for:: Select your confidence level for the following using the scale 1-10 where 1 is not at all confident and 10 is totally confident. Your score is the average of all 6 responses. Fatigue: How confident are you that you can keep the fatigue caused by your disease from interfering with the things you want to do? Select Number: 7 Physical Discomfort or Pain: How confident are you that you can keep the physical discomfort or pain of your disease from interfering with the things you want to do? Select Number: 7 Emotional Distress: How confident are you that you can keep the emotional distress caused by your disease from interfering with the things you want to do? Select Number: 9 Other Symptoms or Health Problems: How confident are you that you can keep other symptoms or health problems from interfering with the things you want to do? Select Number: 9 Different Tasks and Activities: How confident are you that you can do the different tasks and activities needed to manage your health condition so as to reduce your need to see a doctor? Select Number: 8 Medication: How confident are you that you can do things other than just taking medication to reduce how much your illness affects your everyday life? Select Number: 10 Total Score:: 8 Nutrition Survey
[2020-08-14 07:03] VITALS: BP 118/60; BP 180/80; BMI 30.6
== END 2020-08-17 23:59 ==
LOC: CR 10:15
PROVIDERS: PCP Family Medicine; Referring Provider Internal Medicine Cardiovascular Disease; Visit Provider Internal Medicine Cardiovascular Disease
DX: I25.10 Atherosclerotic heart disease of native coronary artery without angina pectoris (principal); Z95.1 Presence of aortocoronary bypass graft
CPT/HCPCS: 93798

== ENCOUNTER 2020-09-16 10:30 | Outpatient (RCR) | payer MEDICARE, SELFPAY ==
[2020-06-16 10:39] VITALS: BMI 28.7
[2020-08-18 00:09] VITALS: BP 118/60; BP 180/80
--- NOTE | 2020-09-15 08:21 | CR.ITP_ITS ---
Diagnosis Exercise - Final/Discharge - Visit Date of Eval: 09/15/20 Session #:: 35 - Physician Prescribed Exercise Modalities: Airdyne, NuStep, SciFit Frequency: 3x/week for 12 weeks [36 sessions] Intensity: 60-80% of age predicted maximum heart rate reserve Current METSs:: 4.0 unchanged Target Heart Rate:: 99-129 Current RPE:: 13-14 Maximum Excercise HR:: 109 Resting Blood Pressure: 130/60 Maximum Exercise Blood Pressure: 180/80 EKG Type: NSR to sinus tach with isolated PVCs and rare PAC - Outcomes & Goals Goals:: Verbalizes understanding of THR, RPE & goal METS by session 6, Documents in home exercise log/reports 30 min aerobic 5 day/wk by DC, Demonstrates accurate pulse taking by DC - Intervention & Plan Exercise Program Goals: Instruct on personal THR & RPE, Instruct on MET level & personal MET goal, Show patient to take own pulse /validate performance until accurate, Instruct on home exercise - 30-day Reassessments 30 day Reassessments:: Met - Physical Activity Home Exercise Physical Activity - Home Exercise: Safe Exercise, Warm-up, Self-monitoring, Cool-Down, Home Exercise > 30 min Daily, Sitting Time <3 hours/daily - Outcomes & Goals Outcomes/Goals: Demonstrates correct Warm-up/exercise Cool-Down (S3) if = 2.5 METs, Verbalizes symptoms of exercise intolerance by Session 3 (S3), Demonstrate safe equipment use (S3) & follows exercise prescrition (6) - Intervention & Plan Plan/Intervention: Instruct warm-up & cool-down if exercising at > 2 METs, Instruct on symptoms of exercise intolerance & actions to take, Instruct & monitor on saf, Assess intial functional capacity & safety risk - 30-day Reassessments 30 day Reassessments:: Met Nutrition - Initial Assessment Nutrition - 30-Day Assessment Nutrition - 60-Day Assessment Nutrition - 90-Day Assessment Nutrition - Final Assessment - Program Goals Nutrition Program Goals: LDL <100 optimal. 100 - 129 Near optimal. 130 - 159 Borderline High. 160 - 189 High. Total Cholesterol <200 desirable. 200 - 239 Borderline High. >/= 240 High. HDL < 40 Low >/=60 High. Triglycerides <150 desirable. <199 optimal. VlDL 5 - 40. HgbA1C <7%. BMI <25 Patient has diagnosis of Hyperlipidemia (ICD E78)?: Yes - Visit Date of Assessment:: 09/15/20 Session #:: 35 - Cholesterol/Lipids Determine presence & major risk factors that modify LDL goal: Hypertension or hypertensive medication, Family history of premature CHD in Male < 55 years: female <65 yearsFa, Age men > 45 years; women >/= 55 years Outcomes/Goals: Pt IDs own risk factors & lifestyle modifications by Session 10, Verbalizes symptoms of angina & response by session 3., Pt independently manages Intervention/Plan: Instruct on personal lipid levels & lipid goals/NCEP guidelines, Instruct on cholesterol 30-day Reassessments:: Progressing - Diabetes (Other Core Measures) Diabetes Type: Not Applicable - Weight Mgt (Other Care) Not Applicable: Yes Height: 5 ft 8 in Weight:: 205 lb 8 oz BMI: 31.2 Diagnosis Overweight/Obesity BMI> 30% ICD-10 E66: Yes Diagnosis High BMI/Morbid Obesity BMI> 35% ICD-10 Z68: No Outcomes/Goals: Pt sets, maintains & shows weight loss goal & trend during rehab Intervention/Plan: Instruct on ideal BMI & set weight loss goal w/patient, Encourage goal of using 250-300dcal per session for weight loss 30 day Reassessments:: Progressing - Healthy Eating Habits Will attend diet classes:: Yes Outcomes/Goals:: Consume diet rich in vegs,fruits,whole grain/high fiber,fish,lean meat, Limit sat/trans fats,cholesterol & added salts & sugars Intervention/Plan:: Assess current eating habits 30-day Reassessments:: Progressing Medical - Initial Assessment Medical- 30-Day Assessment Medical- 60-Day Assessment Medical- 90-Day Assessment Medical - Final Assessment - Visit Date of Eval: 09/15/20 Session #:: 35 - Medication Compliance Preventative Medication(s):: Aspirin, Statin/lipid, Beta reema H/O mental health issues: depression, anxiety, or addiction?: No Doesn?t believe in the benefits of treatment?: No Believes medications are unnecessary or harmful?: No Has a concern about medication side effects?: No Expresses concern over the cost of medications?: No Outcomes/Goals: Verbalizes medications,desired effect & common side effects @ DC, Pt self-reports following medication regimen, Keeps card in wallet w/medications listed by DC Interventions/plans: Instruct on medication effects & side effects, Review medication list w/patient every two weeks, Instruct importance of taking meds as ordered & assist problem solving 30-day Reassessments:: Met - Tobacco Use Tobacco Use: Non-smoker - Hypertension Hypertension Diagnosis:: Hypertension ICD-10 I10 Resting Blood Pressure:: 130/60 [place] [employer] Hypertension Guidelines: [place] [employer] Hypertension Guidelines. Normal BP Less than 120/80. Elevated BP 120/80. Hypertension Stage 1: BP 130-139/80-89. Hypertesnion Stage 2: BP 140 or higher/90 or higher. Hypertension Crisis: BP higher than 180/120 Peak Exercise Blood Pressure:: 180/80 Outcomes/Goals: Able to verbalize/achieve optimal blood pressure <130/80, Incorporates diet changes & exercise for blood pressure control by DC Interventions/plan: Instruct on optimal blood pressure, hypertension & medications, Instruct on effects of sodium, alcohol, stress, exercise &hypertension 30 day Reassessments:: Progressing - Tobacco Cessation Referral Smoking Cessation Referral:: No Individual Education/Counseling:: No Education Schedule Given:: Yes Psychosocial - Initial Assess Psychosocial - 30-Day Assess Psychosocial - 60-Day Assess Psychosocial - 90-Day Assess Psychosocial - Final Assessmen - VIsit Date of Eval: 09/15/20 Session #:: 35 Not Applicable: Yes History of previous Mental disease:: No - Psychosocial Test Tool Used:: Companion Canine QOL Cardiac, PHQ-9 Questionnaire phq-9 Severity: Severity. 1-4 Minimal Depression. 5-9 Mild Depression. 10-14 Moderate Depression. 15-19 Moderately Sever Depression. 20-27 Severe Depression. Rule: - Referral to Behavioral Health PS - Interventions: Yes Attend Stress Management Classes, No Referral to Behavioral Health if PHQ-9 score >9:, No Referral to [facility], No Referral to Physician if PHQ-9 if score is 5-9: - Outcomes/Goals: See list Psychosocial Outcomes/Goals:: ID's personal stressors & 2 strategies to manage stress by discharge - Intervention/Plan: See List Interventions/Plan:: Assess stressors,coping strategies & signs of derpression on admission, Instruct/assist pt to develop coping & personal stress Mgt strategies, Instruct patient to recognize signs & symptoms of depression, Instr uct patient to recog - 30-day Reassessments: 30 day Reassessments:: Met Patient Health Questionnaire Discharge Assessment 1. Little interest or pleasure in doing things: Not at all 2. Feeling down, depressed, or hopeless: Not at all 3. Trouble falling or staying asleep, or sleeping too much: Not at all 4. Feeling tired or having little energy: Not at all 5. Poor appetite or overeating: Not at all 6. Feeling bad about yourself -- or that you are a failure or have let yourself or your family down: Not at all 7. Trouble concentrating on things, such as reading the newspaper or watching television: Not at all 8. Moving or speaking so slowly that other people could have noticed. Or the opposite - being so fidgety or restless that you have been moving around a lot more than usual: Not at all 9. Thoughts that you would be better off , or of hurting yourself in some way: Not at all How difficult have these problems made it for you to do your work, take care of things at home, or get along with other people?: Not difficult at all Total Score: 0 Self-Efficacy Discharge Assessment We would like to know how confident you are in doing certain activities. Please select your confidence level for:: Select your confidence level for the following using the scale 1-10 where 1 is not at all confident and 10 is totally confident. Your score is the average of all 6 responses. Fatigue: How confident are you that you can keep the fatigue caused by your disease from interfering with the things you want to do? Select Number: 10 Physical Discomfort or Pain: How confident are you that you can keep the physical discomfort or pain of your disease from interfering with the things you want to do? Select Number: 10 Emotional Distress: How confident are you that you can keep the emotional distress caused by your disease from interfering with the things you want to do? Select Number: 10 Other Symptoms or Health Problems: How confident are you that you can keep other symptoms or health problems from interfering with the things you want to do? Select Number: 10 Different Tasks and Activities: How confident are you that you can do the different tasks and activities needed to manage your health condition so as to reduce your need to see a doctor? Select Number: 10 Medication: How confident are you that you can do things other than just taking medication to reduce how much your illness affects your everyday life? Select Number: 10 Total Score:: 10 Nutrition Survey
[2020-09-15 08:29] VITALS: BP 130/60; BP 180/80; BMI 31.2
== END 2020-09-16 23:59 ==
LOC: CR 10:30
PROVIDERS: PCP Family Medicine; Referring Provider Internal Medicine Cardiovascular Disease; Visit Provider Internal Medicine Cardiovascular Disease
DX: I25.10 Atherosclerotic heart disease of native coronary artery without angina pectoris (principal); Z95.1 Presence of aortocoronary bypass graft
CPT/HCPCS: 93798

== ENCOUNTER 2020-09-18 09:34 | Outpatient (RCR) | payer MEDICARE, SELFPAY ==
[2020-06-16 10:39] VITALS: BMI 28.7
[2020-09-15 08:29] VITALS: BMI 31.2
[2020-09-17 00:11] VITALS: BP 130/60; BP 180/80
== END 2020-10-17 23:59 ==
LOC: CR 09:34
PROVIDERS: PCP Family Medicine; Referring Provider Internal Medicine Cardiovascular Disease; Visit Provider Internal Medicine Cardiovascular Disease
DX: I25.10 Atherosclerotic heart disease of native coronary artery without angina pectoris (principal); Z95.1 Presence of aortocoronary bypass graft
CPT/HCPCS: 93798

== ENCOUNTER 2021-04-19 07:05 | Outpatient (CLI) | payer MEDICARE, SELFPAY ==
[2020-09-15 08:29] VITALS: BMI 31.2
--- NOTE | 2021-04-19 10:12 | STRESSREP ---
Stress Test Report Exercise and pharmacologic myocardial perfusion stress test. 70-year-old man with a history of coronary artery disease and hypertension. Stress protocol: Resting EKG demonstrates normal sinus rhythm with a rate of 67 bpm normal intervals are noted resting blood pressure is 146/78 mmHg. The patient initially exercised according to regular Edward protocol but could not tolerate it and therefore this was changed to pharmacologic myocardial perfusion protocol. 0.4 mg of regadenoson was infused per usual protocol followed by rapid intravenous saline flush injection. Continuous monitoring was performed. The maximum heart rate was 100 bpm which was 66% of the maximum predicted heart rate the maximum workload was 1 metabolic equivalent. At rest there were no ST or T wave changes noted to suggest abnormal flow reserve and at peak infusion nonspecific ST changes were noted with did not meet the criteria for ischemia. No clinical angina was noted the test was terminated due to completion of the test. The peak blood pressure was 150/68 mmHg. Myocardial perfusion protocol. 11.6 mCi of technetium 99m sestamibi was injected at rest. 0.4 mg of regadenoson was infused per usual protocol. At peak infusion 34.7 mCi of technetium 99m sestamibi was injected stress images were obtained stress and rest images were reconstructed and compared in the short axis vertical long horizontal long axis. Gated images were also obtained for Perfusion SPECT analysis: Review of the stress images demonstrate normal uptake of tracer noted in all areas of the myocardium. The resting images similarly demonstrate normal uptake of tracer noted in all areas of the myocardium. No areas of reversibility are noted to suggest ischemia and no previous infarct is noted. Gated SPECT analysis: The gated ejection fraction is 70%. Conclusion: Normal pharmacologic myocardial perfusion stress test. Preserved ejection fraction.
== END 2021-04-19 23:59 | disposition short-term general hospital (02) ==
LOC: CVS 07:07
PROVIDERS: PCP Family Medicine; Referring Provider Internal Medicine Cardiovascular Disease; Visit Provider Internal Medicine Cardiovascular Disease
DX: Z95.1 Presence of aortocoronary bypass graft (principal); I10 Essential (primary) hypertension
CPT/HCPCS: 78452; 93017; A9500; A4216; J2785

== ENCOUNTER → 2024-03-18 | Outpatient (CLI) | payer MEDICARE, SELFPAY ==
[2020-09-15 08:29] VITALS: BMI 31.2
--- NOTE | 2024-03-18 14:29 | STRESSREP ---
Stress Test Report Pharmacologic myocardial perfusion stress test. 73-year-old man with a history of chest pain Resting EKG demonstrates sinus rhythm with a rate of 60 bpm. Resting blood pressure is 122/78 mmHg. 0.4 mg of regadenoson was infused per usual protocol followed by rapid intravenous saline flush injection. Continuous EKG monitoring was performed. The maximum heart rate was 108 bpm which was 72% of max impacted heart rate the maximum workload was 1 metabolic equivalent. At rest there were no ST or T wave changes noted to suggest ischemia and at peak infusion nonspecific ST changes were noted which did not meet the criteria for ischemia. No clinical angina is noted. The final blood pressure was 130/72 mmHg. Myocardial perfusion protocol. 13 point mCi of technetium 99m sestamibi was injected at rest. 0.4 mg of regadenoson was infused per usual protocol. At peak infusion 42.7 mCi of technetium 99m sestamibi was injected stress images were obtained stress and rest images were reconstructed and compared in the short axis vertical long and horizontal long axis. Gated images were also obtained. Perfusion SPECT analysis: Review of the stress images demonstrate normal uptake of tracer noted in all areas of the myocardium. The resting images similar demonstrated normal uptake of tracer noted in all areas of the myocardium. No areas of reversibility are noted to suggest ischemia and no previous infarct is noted. Gated SPECT analysis: The gated ejection fraction is 70%. Conclusion: Normal pharmacologic myocardial perfusion stress test. Preserved ejection fraction.
== END | disposition home or self-care (01) ==
LOC: CVS 06:19
PROVIDERS: PCP Family Medicine; Referring Provider Nurse Practitioner Family; Visit Provider Nurse Practitioner Family
DX: R07.9 Chest pain, unspecified (principal)
CPT/HCPCS: 78452; 93017; A9500; A4216; J2785

== ENCOUNTER 2024-04-22 20:17 | Emergency (ER) | payer MEDICARE, SELFPAY ==
[2020-09-15 08:29] VITALS: BMI 31.2
[2024-04-22 20:18] VITALS: BP 156/70; PULSE 63; RESP 16; TEMP 36.4; O2SAT 98; BMI 30.3
--- NOTE | 2024-04-22 20:24 | RAD_ITS ---
PROCEDURE: CHEST 1 VIEW (PORTABLE) REASON FOR EXAM: Chest pain. TECHNIQUE: Frontal view of the chest. COMPARISON: None. FINDINGS: Prior sternotomy. The heart size is normal. The lungs are clear. RAD/Chest 1 View (Portable) IMPRESSION: No acute cardiopulmonary abnormalities. Reading Location: [id number]
--- NOTE | 2024-04-22 20:24 | EKG12_ITS ---
Test Reason : DYSRHYTHMIA Blood Pressure : */* mmHG Vent. Rate : 62 BPM Atrial Rate : 62 BPM P-R Int : 212 ms QRS Dur : 90 ms QT Int : 402 ms P-R-T Axes : 44 -37 20 degrees QTcB Int : 408 ms Sinus rhythm with 1st degree A-V block Left axis deviation Abnormal ECG Confirmed by SEBASTIÁN KELLY, SHAUNA ([id number]), assistant editor MEGHA GOEL ([id number]) on 04/23/2024 8:54:56 AM Referred By: Confirmed By: SHAUNA LOWERY MD
--- NOTE | 2024-04-22 20:33 | ED.VIS.CHEST ---
HPI History of Present Illness Chief Complaint: Chest Pain Informant: patient Narrative Narrative: Presents by EMS from home sudden onset chest aching heaviness with dyspnea 30 minutes prior to arrival. States he was getting ready to take a nap when he felt symptoms. No recent cough. He had 6 vessel bypass in 2020 at [facility]. Followed locally by Dr. Quinones. Intermittent chest pain since then that similar he had a stress test a month ago. No additional cath since then. No pain down the arms neck or back. He took his baby aspirin today. Hypertension hyperlipidemia. Denies diabetes or tobacco. Father [place] in his 70s. Symptoms currently subsiding. Prior Similar Symptoms: Yes CVD Risk Factors: Positive for Hypertension and Hypercholesterolemia; Negative for Diabetes, Family History 1' </=55 or Smoking [facility] Medical History Anemia Arthritis Atherosclerotic heart disease of [place] coronary artery without angina pectoris Atherosclerotic heart disease [place] coronary artery w/angina pectoris Elevated antinuclear antibody (CYNTHIA) level Hyperlipidemia Essential hypertension GERD (gastroesophageal reflux disease) Arthralgia History of arthritis Home Medications ?Medication ?Instructions ?Recorded ?Last Taken ?Type meloxicam 15 mg tablet 15 mg PO DAILY 04/07/20 Unknown History aspirin 81 mg tablet,delayed 81 mg PO DAILY for heart cath 04/20/20 04/27/20 History release (Adult Low Dose Aspirin) 04/27/20 losartan 50 mg tablet 50 mg PO DAILY #90 tabs 11/21/23 Unknown Rx montelukast 10 mg tablet 10 mg PO QAM 03/21/24 Unknown History tamsulosin 0.4 mg capsule 0.4 mg PO QDAY 03/21/24 Unknown History metoprolol tartrate 25 mg tablet 12.5 mg (1/2 x 25 mg) PO BID #90 03/26/24 Unknown Rx tabs pravastatin 80 mg tablet 80 mg PO QHS #90 tabs 03/26/24 Unknown Rx isosorbide mononitrate 30 mg 30 mg PO QAM #30 tabs 04/09/24 Unknown Rx tablet,extended release 24 hr ranolazine 1,000 mg 1,000 mg PO BID this is a dose 04/12/24 Unknown Rx tablet,extended release,12 hr increase #60 tabs Allergy/AdvReac Type Severity Reaction Status Date / Time No Known Allergies Allergy Verified 03/21/24 16:16 Family History Mother Heart disease Diabetes Father Myocardial infarction Surgical History H/O coronary artery bypass surgery (05/07/20) History of left heart catheterization (04/27/20) History of cholecystectomy (2014) History of colonoscopy (2016) History of tonsillectomy Social History Smoking Status: Never smoker alcohol intake: current alcohol intake frequency: holidays/special occasions only substance use type: does not use caffeine: Yes Type: carbonated beverages ROS ROS ED Constitutional Constitutional ED: Denies chills, fever(s) or sweats ENT ENT ED: Denies sore throat Cardiovascular Cardiovascular: Reports chest pain; Denies leg edema, palpitations or racing heartbeat Respiratory/Chest Respiratory/Chest: Reports dyspnea; Denies cough or dyspnea on exertion Gastrointestinal Gastrointestinal: Denies abdominal pain, diarrhea, nausea or vomiting Genitourinary Genitourinary ED: Denies dysuria, hematuria or urinary frequency Musculoskeletal Musculoskeletal: Denies back pain, extremity pain or neck pain Integumentary Denies rash or wounds Neurologic Neurologic: Denies headache(s), paresthesias or weakness EXAM Physical Exam Const Vital Signs: 04/22/24 20:18 04/22/24 20:24 04/22/24 20:26 Temperature 97.6 F L Temperature Source Oral Pulse Rate 63 Respiratory Rate 16 Respiratory Effort Normal Blood Pressure 156/70 H Blood Pressure Mean 98 Pulse Ox 98 Oxygen Delivery Method Room Air Room Air 04/22/24 21:18 04/22/24 22:00 04/22/24 23:00 Temperature Temperature Source Pulse Rate 89 62 65 Respiratory Rate 32 H 17 13 Respiratory Effort Blood Pressure 132/73 H 134/72 H 144/79 H Blood Pressure Mean 92 92 100 Pulse Ox 100 97 96 Oxygen Delivery Method Room Air Room Air Room Air 04/22/24 23:50 Temperature 98.7 F Temperature Source Pulse Rate 72 Respiratory Rate 13 Respiratory Effort Blood Pressure 147/71 H Blood Pressure Mean 96 Pulse Ox 100 Oxygen Delivery Method Positive well nourished and well developed General Appearance ED: well developed and NAD HEENT Reports moist mucous membranes normocephalic and atraumatic Eyes General Eye ED: Yes normal appearance of both eyes Neck full ROM Chest Wall Chest Narrative: Midline chest scar. Chest: Negative for tenderness Resp normal respiratory effort and normal air movement Effort and Inspection: symmetric chest movement; Negative for respiratory distress Cardio regular rate, regular rhythm and no murmurs Peripheral Pulses: pulses 2+ throughout GI normal to inspection, nondistended, normoactive bowel sounds and non-tender Palpation: Negative for guarding or rebound tenderness present Extremity normal to inspection General Extremety ED: Negative for edema or tenderness General Extremity: Negative for edema Neuro oriented x3 and no sensory deficits noted Sensorium / Orientation: awake and alert Skin no rashes or lesions noted and no wounds Heart Score History: Slightly/Non-Suspicious ECG: Normal Age: >/= 65 years Risk Factors: >/= 3 Risk Factors or History of CAD Troponin: </= Normal Limit Score: 4 MDM MDM MDM Narrative Medical decision making narrative: Interventions / MDM: Differential diagnosis: Chest pain, history of coronary disease Diagnosis considered but do not suspect: ACS however EKG and cardiac enzymes are negative. My EKG interpretation: Sinus rate of 62, no ST changes. I see T wave version leads III. Nonspecific. Imaging independently reviewed and interpreted by myself: 1 view chest x-ray: No acute process External documents reviewed: N/A Test considered but not ordered:N/A ED course: Chest pain 30 minutes prior to arrival. Will optimize his aspirin with additional 243 mg. Cardiac workup initiated chest x-ray ordered for further evaluation. Cardiac workup negative troponin negative x 2. Chest x-ray negative. Symptoms improved on reevaluation. 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 All questions were answered. Re-evaluation: stable Disposition discussed with patient/family/significant other: Patient and family Case discussed with consulting clinician: N/A This note was generated with [employer] dictation software. It may contain incorrect words, spelling, and punctuation that were not noted in checking the note before signing. Lab Data Attestation: I reviewed the patient's lab results. Labs: Laboratory Results - last 24 hr 04/22/24 04/22/24 20:31 22:41 WBC 6.7 RBC 4.40 L Hgb 13.5 Hct 39.7 L MCV 90.2 MCH 30.7 MCHC 34.0 RDW Std Deviation 39.8 RDW Coeff of Lesli 12.0 Plt Count 214 MPV 9.1 Immature Gran % (Auto) 0.600 Neut % (Auto) 67.6 Lymph % (Auto) 17.3 L Moore % (Auto) 9.2 Eos % (Auto) 5.2 H Baso % (Auto) 0.1 Absolute Neuts (auto) 4.5 Absolute Lymphs (auto) 1.16 Nucleated RBC % 0 Sodium 139 Potassium 3.9 Chloride 106 Carbon Dioxide 30.0 Anion Gap 3 L BUN 20 H Creatinine 0.98 Estim Creat Clear Calc 74.42 Est GFR (MDRD) Af Amer 96 Est GFR (MDRD) Non-Af 80 BUN/Creatinine Ratio 20.4 H Glucose 105 Calcium 8.9 Troponin I High Sens 5 6 Radiography Diagnostic Testing: Clinical Impression(s) from Imaging Studies Chest X-Ray 04/22/24 20:24 IMPRESSION: No acute cardiopulmonary abnormalities. Reading Location: [facility] Discharge Plan Triage Chief Complaint: Chest Pain ED Provider: Oniel Martinez Dx/Rx/DC Orders Clinical Impression: Chest pain, CAD (coronary artery disease) Instructions: ED Chest Pain, Uncertain Cause Prescriptions: No Action meloxicam 15 mg tablet 15 mg PO DAILY montelukast 10 mg tablet 10 mg PO QAM tamsulosin 0.4 mg capsule 0.4 mg PO QDAY aspirin [Adult Low Dose Aspirin] 81 mg tablet,delayed release (DR/EC) 81 mg PO DAILY losartan 50 mg tablet 50 mg PO DAILY Qty: 90 3RF metoprolol tartrate 25 mg tablet 12.5 mg PO BID Qty: 90 3RF pravastatin 80 mg tablet 80 mg PO QHS Qty: 90 3RF isosorbide mononitrate 30 mg tablet extended release 24 hr 30 mg PO QAM Qty: 30 11RF ranolazine 1,000 mg tablet extended release 12 hr 1,000 mg PO BID Qty: 60 11RF Primary Care Provider: Niraj Pastrana Referrals: Mj Quinones MD [Med Staff - Active Staff] - 3-5 Days Niraj Pastrana MD [Primary Care Provider] - Activity Restrictions/Additional Instructions: Cardiac workup negative. Follow-up with Dr. Quinones. If symptoms worsens or reoccurs, return to ED for reevaluation. Print Language: Kyrgyz Disposition Disposition: Home, Self Care Discharge Date/Time: 04/22/24 23:57
[2024-04-22 20:37] LABS: Absolute Lymphocyte Count 1.16 X10^3/uL (0.83-4.51); Absolute Neutrophil Count 4.5 X10^3/uL (2.0-7.7); Basophil# 0.01 X10^3/uL; Basophil% 0.1 % (0-1); Eosinophil# 0.35 X10^3/uL; Eosinophils% 5.2 % (0-5); Hematocrit 39.7 % (40-54); Hemoglobin 13.5 g/dL (13.0-16.5); Lymphocyte # 1.16 X10^3/ul (0.83-4.51); Lymphocyte % 17.3 % (19-41); Mean Corpuscular Hgb 30.7 pg (27.0-32.0); Mean Corpuscular Volume 90.2 fL (80-94); Mean Platelet Vol. 9.1 fl (6.2-12.0); Monocyte# 0.62 X10^3/uL; Monocyte% 9.2 % (0-10); NRBC Flagged by Analyzer 0 % (0-5); Neutrophil # 4.53 X10^3/uL (2.7-7.7); Neutrophil % 67.6 % (47-70); Platelet Count 214 K/mm3 (150-450); RBC Distribution Width SD 39.8 fl (35.1-43.9); White Blood Count 6.7 K/mm3 (4.4-11.0)
[2024-04-22 20:59] LABS: Anion Gap 3 (5-15); BUN 20 mg/dL (7-18); BUN/Creat Ratio 20.4 RATIO (10-20); Calcium,Total 8.9 mg/dL (8.5-10.1); Chloride 106 mmol/L (98-107); Creatinine, Serum 0.98 mg/dL (0.70-1.30); EST Glomerular Filtration Rate 80 mL/min (>60); Est Glom Filt Rate - Afr Amer 96 mL/min (>60); Estimated Creatinine Clearance 74.42 ml/min; Glucose 105 mg/dL (74-106); Potassium 3.9 mmol/L (3.5-5.1); Sodium Level 139 mmol/L (136-145); Troponin-I HS (w/2H Reflex) 5 pg/mL (3.0-78.0)
[2024-04-22] MEDS: Aspirin 81 MG TAB.CHEW 243 MG PO (20:59)
[2024-04-22 21:18] VITALS: BP 132/73; PULSE 89; RESP 32; O2SAT 100
--- NOTE | 2024-04-22 21:54 | CM.ED ---
Social work Reason for referral: validation of advance directives Referral source: case find This SW identified patient's need to have advance directives validated. This SW entered patient's room, introducing self and role at [facility]. Patient's sister, Alexa, bedside and patient gave permission to speak in front of Alexa. Patient confirmed having a HCPOA and Alexa stated being patient's primary HCPOA. Patient confirmed this. Justyna Philip, PLANT PACKER, PRINT BINDING WORKER
[2024-04-22 22:00] VITALS: BP 134/72; PULSE 62; RESP 17; O2SAT 97
[2024-04-22 22:34] LABS: Reflex Troponin-HS? (from REC) Y
[2024-04-22 23:00] VITALS: BP 144/79; PULSE 65; RESP 13; O2SAT 96
[2024-04-22 23:08] LABS: Troponin-I HS 6 pg/mL (3.0-78.0)
[2024-04-22] MEDS: Ondansetron 4 MG/2 ML Vial IV (23:47)
[2024-04-22 23:50] VITALS: BP 147/71; PULSE 72; RESP 13; TEMP 37.1; O2SAT 100
== END 2024-04-22 23:57 | disposition home or self-care (01) ==
PROVIDERS: Emergency Provider Emergency Medicine; PCP Family Medicine; Visit Provider Emergency Medicine
DX: R07.9 Chest pain, unspecified (principal); R06.00 Dyspnea, unspecified; I25.10 Atherosclerotic heart disease of native coronary artery without angina pectoris; I10 Essential (primary) hypertension; E78.00 Pure hypercholesterolemia, unspecified; K21.9 Gastro-esophageal reflux disease without esophagitis; Z79.82 Long term (current) use of aspirin; Z79.899 Other long term (current) drug therapy; Z95.1 Presence of aortocoronary bypass graft
CPT/HCPCS: 71045; 80048; 84484; 85025; 93005; 96374; 99285; A4216; J2405

== ENCOUNTER 2024-05-06 08:22 | Day surgery (SDC) | payer MEDICARE, SELFPAY ==
[2020-09-15 08:29] VITALS: BMI 31.2
[2024-05-03 07:30] VITALS: BMI 29.5
--- NOTE | 2024-05-03 20:59 | HP.PCM_ITS ---
History and Physical Date of Admission: 05/06/24 History of Present Illness Details: This is a pleasant 73-year-old male who presents the office today for a cardiovascular outpatient follow-up. He had undergone a stress test in March 2020 at a low workload and subsequently underwent a left heart catheterization with demonstrated multivessel coronary artery disease. He subsequently underwent coronary bypass x5 on 05/07/2020 at [facility] with COBOS-LAD, Sequential SVG-RPLVB and OM1, SVG-RPDA, and SVG-D1. He contacted our office expressing concerns regarding chest pain. He underwent a stress test on 03/18/2024 that was negative for ischemia and showed a preserved action fraction. He also has a history of hypertension and hyperlipidemia. He acknowledges random, left-sided chest discomfort. He denies aggravating factors. He states it occurs with rest and activity. This is noted to be dull. This last for minutes. He is unsure but feels this could be similar to prior bypass. It resolves on its own without any specific intervention. He was started on Ranexa and uptitrated for the pain. He was evaluated in the ER for the pain with a negative work up on 04/22/2024. He denies palpitations, bilateral lower extremity edema, shortness breath activity, shortness of breath at rest, orthopnea, lightheadedness, dizziness, near-syncope, syncope, or fatigue. His activity is limited by knee pain and leg weakness. Intake Vital Signs Intake Visit Reasons: [facility] Bilingual Sales Assistant Required: No Is patient in pain?: No Allergies No Known Allergies Allergy (Verified 03/21/24 16:16) Medications: See EMR Ejection fraction %: 60 Have you fallen in the past year?: No [facility] Medical History Anemia Arthritis Atherosclerotic heart disease of quechan coronary artery without angina pectoris Atherosclerotic heart disease quechan coronary artery w/angina pectoris Elevated antinuclear antibody (CYNTHIA) level Hyperlipidemia Essential hypertension GERD (gastroesophageal reflux disease) Arthralgia History of arthritis Surgical History H/O coronary artery bypass surgery (05/07/20) History of left heart catheterization (04/27/20) History of cholecystectomy (2014) History of colonoscopy (2017) History of tonsillectomy Family History Mother Heart disease DiabetesFather Myocardial infarction Social History (Updated 03/21/24 @ 16:19 by Loretta Larson) Smoking Status: Never smoker alcohol intake: current alcohol intake frequency: holidays/special occasions only substance use type: does not use caffeine: Yes Type: carbonated beverages ROS Const Const: Negative for fatigue or weakness Eyes Eyes: Negative for change in vision ENT ENT: Negative for dizziness or balance problems Cardio Chest Pain: Yes Frequency: other Character: dull Onset: other (randomly) Location: left chest Duration: minutes Palpitations: No Edema: None Resp Respiratory: Negative for SOB with activity, SOB at rest or SOB orthopnea\SOB lying down GI GI: Negative nausea or heartburn Musc Musc: Positive for muscle weakness (Intermittent leg weakness); Negative for balance problems Neuro Neuro: Negative for dizziness, lightheadedness, near syncope, syncope or weakness Endo Endo: Negative for fatigue Supplemental Info Supplemental Information Echocardiogram from 05/07/2020: CONCLUSIONS 1. Left ventricle: Systolic function is normal. The estimated ejection fraction is 60%. Mild hypokinesis of the apicalanterior myocardium. 2. Right ventricle: The cavity size is mildly dilated. Systolic function is low normal by visual assessment. 3. Left atrium: There is no evidence of a thrombus in the atrial cavity or appendage. 4. No significant valve disease. Echocardiogram from 04/22/2020: Interpretation Summary Normal LV size. Left ventricular systolic function is normal. The estimated ejection fraction is 60 %. Stage 1 diastolic dysfunction. Pulmonary artery systolic pressure is 30 mmHg. Stress test from 03/18/2024: Conclusion: Normal pharmacologic myocardial perfusion stress test. Preserved ejection fraction. Heart catheterization from 04/27/2020: CONCLUSIONS Triple-vessel disease involving the left anterior descending artery with a bifurcating lesion, the left circumflex artery with a bifurcating lesion, mid right coronary artery, and the distal right coronary artery with a bifurcating PDA posterior lateral lesion. Preserved left ventricular systolic function. CORONARY ANGIOGRAPHY DOMINANCE: Right Dominant LEFT HEART ASSESSMENT Left Ventricular Ejection Fraction: by LV Gram 60 % Normal LV wall motion Normal Left Ventricular systolic function LEFT MAIN: Angiographically normal LEFT ANTERIOR DESCENDING ARTERY: PROX LAD: Mild calcification, Long 70 % Stenosis DIAGONAL 1: Ostial - 80 % Stenosis CIRCUMFLEX ARTERY: PROX CIRC: 80 bifurcating % Stenosis RIGHT CORONARY ARTERY: MID RCA: 80 % Stenosis RT PLV: 80 % Stenosis RT PDA: Ostial - 90 % Stenosis CORONARY ARTERY BYPASS SURGERY 05/07/2020 PREOPERATIVE DIAGNOSIS: Coronary artery disease POSTOPERATIVE DIAGNOSIS: Coronary artery disease PROCEDURE: 1. Coronary artery bypass grafting x 5 - Left internal mammary artery to the left anterior descending - Sequential saphenous vein graft to the obtuse marginal and a branch of the right coronary artery (PLV) - Saphenous vein graft to the right coronary artery (posterior descending artery) - Saphenous vein graft to the diagonal 2. Endoscopic vein harvest, left lower extremity Assessment and Plan Assessment and Plan (1) H/O coronary artery bypass surgery: Status: Resolved Comment: CABG x 5: COBOS-LAD, Sequential SVG-RPLVB and OM1, SVG-RPDA, SVG-D1 05/07/2020 Plan: Stress test from February 2024 was negative for ischemia. With his history and continual chest pain despite medication adjustment, he will under left heart catheterization to evaluate further. Depending on results, further recommendation will be made. (2) Essential hypertension: Status: Chronic Plan: Patient's blood pressure is well-controlled. We will continue to monitor. We will not make any medication regimen changes. (3) Hyperlipidemia: Status: Chronic Qualifiers: Hyperlipidemia type: unspecified Qualified Code(s): E78.5 - Hyperlipidemia, unspecified Plan: Lipid panel from 04/06/2021 showed Cholesterol: 112, HDL: 38, LDL: 54, and Triglycerides: 99. He will continue pravastatin therapy. He expects this to be repeated with primary care provider in June 2023. The patient was reminded of LDL goal of 70 and below for secondary prevention. Plan Details Additional Comments: Thank you for allowing us to participate in the patients plan of care, if you have any questions please do not hesitate to call. This note was generated using a voice recognition system and there may be incorrect words, spelling or punctuation that were not noted when reviewing the office note prior to saving. Portions of this documentation were copied and pasted from previous office visit notes to provide a cohesive continuity of the history. The note has been reviewed, edited, and updated, as necessary.
--- NOTE | 2024-05-06 12:31 | CL.D_ITS ---
Patient Name: MARYANN CONNOR Study Date: 05/06/2024 Performing: Mj Quinones MD Ht: 68 inches 172.72 cm : 1950 Wt: 194.01 lbs 88 kg Age: 73 Gender: male BSA: 2.02 PROCEDURE(S) PERFORMED [id number])LHC/COR/LV/CABG CLINICAL PROFILE AND INDICATIONS Indications: Suspected CAD Heart Failure: None Stress/Imaging Date: 03/18/24Stress Test with SPECT MPI: Positive Low Risk CONCLUSIONS Coronary artery disease status post coronary bypass surgery as noted above with a patent COBOS to the LAD, patent sequential saphenous vein graft to the obtuse marginal branch and lateral marginal branch, occluded saphenous vein graft to diagonal branch, and saphenous vein graft to the right coronary artery posterior descending artery which is patent with preserved ejection fraction. RECOMMENDATIONS Medical therapy DESCRIPTION OF PROCEDURE The patient arrived to the procedure lab. The risks and benefits of the procedure as well as a full description of our services here and current unavailability of surgical backup were fully explained to the patient and/or their significant other prior to the catheterization. The Timeout was completed, verifying the correct patient and procedure. The patient's procedural site was prepped and draped in the usual fashion. Local anesthetic was given subcutaneously to left radial region with Lidocaine 2%. Local anesthetic was given subcutaneously to right groin region with Lidocaine 2%. Using a modified Seldinger technique, arterial access was obtained via the left radial artery, a 6Fr sheath was inserted., arterial access was obtained via the right femoral artery, a 5Fr sheath was inserted. Left internal mammary artery graft to the LAD selective angiography was performed in multiple views using a 5 Fr. IM catheter. Right Coronary Artery selective angiography was then performed in multiple views using a 5 Fr. 3DRC (Juarez) catheter. Seq Saphenous Vein graft to the RPL and OM 1 selective angiography was performed in multiple views using a 5 Fr. 3DRC (Juarez) catheter. Saphenous Vein graft to the RPDA selective angiography was performed in multiple views using a 5 Fr. AR MOD catheter. Left Coronary Artery selective angiography was performed in multiple views using a 5 Fr. JL4 catheter. Left Ventriculography was performed in FARIA projection using a 5 Fr. Pigtail catheter. LV to AO pullback pressures were then recorded.Contrast was injected through the sheath and the Right Iliac and Femoral artery were assessed for possible closure device.The femoral arterial sheath was pulled and a Mynx closure device was deployed for hemostasis. The radial arterial sheath was pulled and a TR Band was applied for hemostasis CORONARY ANGIOGRAPHY DOMINANCE: Right Dominant LEFT HEART ASSESSMENT Left Ventricular Ejection Fraction: by LV Gram 60 % Normal LV wall motion Normal Left Ventricular systolic function LEFT MAIN: Angiographically normal LEFT ANTERIOR DESCENDING ARTERY: PROX LAD: Moderate calcification, Long 70 % % Stenosis DIAGONAL 1: Ostial - 80 % Stenosis CIRCUMFLEX ARTERY: PROX CIRC: bifurcating 80% % Stenosis RIGHT CORONARY ARTERY: DISTAL RCA: Dominant vessel with distal 80% stenosis prior to the bifurcation to the posterolateral vessel and the posterior descending artery. GRAFTS: COBOS graft to the Mid LAD Patent and then retrogradely fills the first diagonal vessel Saphenous Vein graft to the RPDA is patent Saphenous Vein graft to the 1st Diagonal is totally occluded Saphenous Vein graft to the 1st OM Is patent and then the sequential portion to a more distal obtuse marginal branch appears to be rather narrow but there is some flow going into the obtuse marginal branch. This is actually a rather long segment. COMPLICATIONS No Complications PROCEDURE MEDICATIONS Versed 1 mg IV Fentanyl 50 mcg IV Versed 1 mg IV Oxygen: 2 L/min via nasal cannula Heparin given IA 05/06/2024 11:32:16 Verapamil 2.5mg, Ntg 100mcgs, 3000 units of Heparin given IA 05/06/2024 11:32:16 SUMMARY OF HEMODYNAMIC DATA Time AIR REST ECG 08:44:01 AO 129/69 (93) SA 11:41:08 AO 135/62 (96) 11:54:23 LV 118/8, 16 12:08:15 LV 123/9, 18 12:08:23 LV 116/9, 20 12:08:58 LVp 123/8, 20 12:09:02 AOp 132/61 (94) 12:09:09 12:24:40 Signed By Mj Quinones MD On 05/06/2024 12:30:30 Mj Quinones MD
== END 2024-05-06 15:31 | disposition home or self-care (01) ==
PROVIDERS: PCP Family Medicine; Referring Provider Internal Medicine Cardiovascular Disease; Visit Provider Internal Medicine Cardiovascular Disease
DX: I25.10 Atherosclerotic heart disease of native coronary artery without angina pectoris (principal); I10 Essential (primary) hypertension; E78.5 Hyperlipidemia, unspecified; Z79.82 Long term (current) use of aspirin; Z79.899 Other long term (current) drug therapy; Z95.1 Presence of aortocoronary bypass graft
CPT/HCPCS: 93459; 99152; 99153; C1894; Q9967; C1769

== ENCOUNTER → 2024-12-25 | Outpatient (CLI) | payer MEDICARE, SELFPAY ==
[2020-09-15 08:29] VITALS: BMI 31.2
[2024-12-25 11:22] LABS: Anion Gap 10 (5-15); BUN 24 mg/dL (4-19); BUN/Creat Ratio 25.4 RATIO (10-20); Calcium,Total 8.9 mg/dL (7.6-11.0); Carbon Dioxide 24.0 mmol/L (21.0-32.0); Chloride 104 mmol/L (98-108); Glucose 130 mg/dL (70-99); Potassium 4.7 mmol/L (3.3-5.1)
== END | disposition home or self-care (01) ==
LOC: LAB 09:30
PROVIDERS: PCP Family Medicine; Referring Provider Nurse Practitioner Family; Visit Provider Nurse Practitioner Family
DX: Z51.81 Encounter for therapeutic drug level monitoring (principal); Z79.899 Other long term (current) drug therapy
CPT/HCPCS: 36415; 80048